=== PATIENT | female | born 1965 | race Caucasian/White ===

== ENCOUNTER 2017-03-01 07:40 | Inpatient (IN) | payer OTHER ==
[2017-03-01] VITALS (16 sets, daily range): BP systolic 107–153; BP diastolic 48–66; PULSE 104–121; RESP 15–26; TEMP 97.4–98.4; O2SAT 99–100
[~2017-03-01] VITALS: Ht 157.5 cm; Wt 68.1 kg
[~2017-03-01 07:40] MED LIST: DAPA5TAB PO; DICL75 PO; GLIP10TA6 PO; ZANTTAB9 PO
[2017-03-01] MEDS ORDERED: RESP: ALBUTEROL 2.5 MG/3 ML NEB (SCH) INH ONE (08:00)
[2017-03-01] MEDS ORDERED: SODIUM CHLORIDE 0.9% FLUSH 10 ML FLUSH IVF PRN ×2 (08:00→09:15)
[2017-03-01] MEDS ORDERED: DOCU50CA5 PO (08:20)
[2017-03-01] MEDS ORDERED: GLIP10TA6 PO (08:20)
[2017-03-01] MEDS ORDERED: LISI10TA3 PO (08:20)
[2017-03-01] MEDS ORDERED: LOVA20TA PO (08:20)
[2017-03-01] MEDS ORDERED: D200CAP PO (08:20)
[2017-03-01] MEDS ORDERED: DAPA1TAB3 PO (08:20)
[2017-03-01] MEDS ORDERED: METF500T PO (08:20)
[2017-03-01 08:29] LABS: AUTOMATED NEUTROPHIL # 4.8 TH/MM3 (1.8-7.7); BASOPHIL # 0.1 TH/MM3 (0-0.2); BASOPHIL % 1.2 % (0.0-2.0); EOSINOPHIL # 0.1 TH/MM3 (0-0.4); EOSINOPHIL % 1.2 % (0.0-4.0); HEMATOCRIT 48.5 % (35.0-46.0); HEMOGLOBIN 16.1 GM/DL (11.6-15.3); LYMPH % 31.9 % (9.0-44.0); LYMPHOCYTE # 2.7 TH/MM3 (1.0-4.8); MEAN CELL VOLUME 94.8 FL (80.0-100.0); MEAN CORPUSCULAR HEMOGLOBIN 31.5 PG (27.0-34.0); MEAN CORPUSCULAR HGB CONC 33.3 % (32.0-36.0); MEAN PLATELET VOLUME 6.9 FL (7.0-11.0); MONOCYTE # 0.8 TH/MM3 (0-0.9); NEUT % 56.7 % (16.0-70.0); PLATELET COUNT 287 TH/MM3 (150-450); RED BLOOD COUNT 5.12 MIL/MM3 (4.00-5.30); RED CELL DISTRIBUTION WIDTH 14.9 % (11.6-17.2); WHITE BLOOD COUNT 8.4 TH/MM3 (4.0-11.0)
--- NOTE | 2017-03-01 08:31 | PD ---
HPI Chief Complaint: Respiratory Symptoms Time Seen by Provider: 07:57 Travel History International Travel<30 days: No Contact w/Intl Traveler<30days: No Traveled to known affect area: No History of Present Illness HPI 51-year-old female complains of shortness of breath. She has been short of breath for the past 3 days approximately and the symptoms worsened today. There is a cough nonproductive. No fever. No chest pain. No history of COPD asthma or CHF. The patient reports dyspnea on exertion and orthopnea. No fever. Multiple personal stressors are reported. No vomiting. Timing constant. Severity moderate least. No history of smoking. PFSH Past Medical History Anemia: Yes Blood Disorders: No Cancer: No Cardiovascular Problems: Yes (HTN ) High Cholesterol: Yes Diabetes: Yes Patient Takes Glucophage: Yes Endocrine: Yes Genitourinary: No Hypertension: Yes Immune Disorder: No Musculoskeletal: No Neurologic: No Psychiatric: No Reproductive: Yes Respiratory: Yes (PNEMONIA) Integumentary: Yes (CYST LABIA) Thyroid Disease: Yes Triglycerides - High: Yes Tetanus Vaccination: > 5 Years ?: Not Menopausal: Yes Past Surgical History Abdominal Surgery: No AICD: No Arteriovenous Shunt: No Cardiac Surgery: No Section: Yes Ear Surgery: No Endocrine Surgery: No Eye Surgery: Yes Gynecologic Surgery: Yes (SURGERY FOR ENDOMETREOSIS) Insulin Pump: No Joint Replacement: No Oral Surgery: No Pacemaker: No Thoracic Surgery: No Other Surgery: Yes (CYST REMOVED B WRISTS AND SKIN GRAFT RT CALF) Social History Alcohol Use: No Tobacco Use: No Substance Use: No Allergies-Medications (Allergen,Severity, Reaction): Coded Allergies: codeine (Unverified Allergy, Mild, VOMITING, 03/01/17) Reported Meds & Prescriptions Reported Meds & Active Scripts Active Reported Stool Softener (Docusate Sodium) 50 Mg Capsule PO DIRECTED D3 Super Strength (Cholecalciferol) 2,000 Unit Cap 2,000 Units PO DAILY Lisinopril 10 Mg Tab 10 Mg PO DAILY Lovastatin 20 Mg Tab 20 Mg PO DAILY Farxiga (Dapagliflozin) 10 Mg Tab 10 Mg PO DAILY Glipizide 10 Mg Tab 10 Mg PO BIDAC Take 30 minutes before a meal Metformin (Metformin HCl) 500 Mg Tab 500 Mg PO BID With a meal Review of Systems Except as stated in HPI: all other systems reviewed are Neg General / Constitutional: No: Fever Cardiovascular: No: Chest Pain or Discomfort Respiratory: Positive: Cough, Shortness of Breath Gastrointestinal: Positive: Nausea Physical Exam Narrative GENERAL: 51 yo F, WNWD, mild distress 2/2 dyspnea/anxiety SKIN: Warm and dry. HEAD: Atraumatic. Normocephalic. EYES: Pupils equal and round. No scleral icterus. No injection or drainage. ENT: No nasal bleeding or discharge. Mucous membranes pink and moist. NECK: Trachea midline. No JVD. CARDIOVASCULAR: Regular rate and rhythm. RESPIRATORY: No accessory muscle use. Clear to auscultation. Breath sounds equal bilaterally. GASTROINTESTINAL: Abdomen soft, non-tender, nondistended. Hepatic and splenic margins not palpable. MUSCULOSKELETAL: Extremities without clubbing, cyanosis, or edema. No obvious deformities. NEUROLOGICAL: Awake and alert. No obvious cranial nerve deficits. Motor grossly within normal limits. Five out of 5 muscle strength in the arms and legs. Normal speech. PSYCHIATRIC: Appropriate mood and affect; insight and judgment normal. Data Data Last Documented VS Vital Signs Date Time Temp Pulse Resp B/P (MAP) Pulse Ox O2 Delivery O2 Flow Rate FiO2 03/01/17 09:44 119 26 110/48 (68) 100 Nasal Cannula 2.00 03/01/17 07:47 97.8 Orders Orders Complete Blood Count With Diff (03/01/17 07:57) Basic Metabolic Panel (Bmp) (03/01/17 07:57) B-Type Natriuretic Peptide (03/01/17 07:57) Ckmb (Isoenzyme) Profile (03/01/17 07:57) Troponin I (03/01/17 07:57) Iv Access Insert/Monitor (03/01/17 07:57) Electrocardiogram (03/01/17 07:57) Ecg Monitoring (03/01/17 07:57) Oximetry (03/01/17 07:57) Oxygen Administration (03/01/17 07:57) Chest, Single Ap (03/01/17 07:57) Ct Pulmonary Angiogram (03/01/17 07:57) Sodium Chloride 0.9% Flush (Ns Flush) (03/01/17 08:00) Albuterol Neb (Albuterol Neb) (03/01/17 08:00) Lorazepam Inj (Ativan Inj) (03/01/17 08:45) Iohexol 350 Inj (Omnipaque 350 Inj) (03/01/17 08:48) Beta Hydroxybutyrate (Acetone) (03/01/17 09:07) Urinalysis - C+S If Indicated (03/01/17 09:07) Sodium Chlor 0.9% 1000 Ml Inj (Ns 1000 M (03/01/17 09:07) Sodium Chlor 0.9% 1000 Ml Inj (Ns 1000 M (03/01/17 09:37) Sodium Chloride 0.9% Flush (Ns Flush) (03/01/17 09:15) Lorazepam Inj (Ativan Inj) (03/01/17 09:15) Arterial Blood Gas (Abg) (03/01/17 ) Basic Metabolic Panel (Bmp) (03/01/17 11:22) Hepatic Functional Panel (03/01/17 09:40) Lipase (03/01/17 09:40) Troponin I (03/01/17 09:40) Creatine Kinase (Cpk) (03/01/17 09:40) Osmolality,Serum (03/01/17 09:40) Alcohol (Ethanol) (03/01/17 09:40) Drug Screen, Random Urine (03/01/17 09:40) Tylenol (Acetaminophen) (03/01/17 09:40) Salicylates (Aspirin) (03/01/17 09:40) Water Sterile For I... W/Sodium Bicarbon (03/01/17 10:00) Sodium Bicarbonate 8.4% Inj (Sodium Bica (03/01/17 10:00) Sodium Bicarbonate 8.4% Inj (Sodium Bica (03/01/17 10:00) Insulin Human Regular Inj (Novolin R Inj (03/01/17 10:00) Lactic Acid (03/01/17 09:55) Admit Order (Ed Use Only) (03/01/17 ) Vocational Nurse Lvn / Telemetry BENJAMIN.Q8H (03/01/17 09:56) Vital Signs (Adult) Q4H (03/01/17 09:56) Diet Npo (03/01/17 Breakfast) Diet Heart Healthy (03/01/17 Breakfast) Notify Dr: Other (03/01/17 09:56) Labs Laboratory Tests Test 03/01/17 08:01 03/01/17 09:22 03/01/17 09:30 03/01/17 09:56 White Blood Count 8.4 TH/MM3 Red Blood Count 5.12 MIL/MM3 Hemoglobin 16.1 GM/DL Hematocrit 48.5 % Mean Corpuscular Volume 94.8 FL Mean Corpuscular Hemoglobin 31.5 PG Mean Corpuscular Hemoglobin Concent 33.3 % Red Cell Distribution Width 14.9 % Platelet Count 287 TH/MM3 Mean Platelet Volume 6.9 FL Neutrophils (%) (Auto) 56.7 % Lymphocytes (%) (Auto) 31.9 % Monocytes (%) (Auto) 9.0 % Eosinophils (%) (Auto) 1.2 % Basophils (%) (Auto) 1.2 % Neutrophils # (Auto) 4.8 TH/MM3 Lymphocytes # (Auto) 2.7 TH/MM3 Monocytes # (Auto) 0.8 TH/MM3 Eosinophils # (Auto) 0.1 TH/MM3 Basophils # (Auto) 0.1 TH/MM3 CBC Comment AUTO DIFF Differential Comment AUTO DIFF CONFIRMED Blood Urea Nitrogen 21 MG/DL 20 MG/DL Creatinine 0.97 MG/DL 0.90 MG/DL Random Glucose 279 MG/DL 316 MG/DL Calcium Level 8.9 MG/DL 8.3 MG/DL Sodium Level 137 MEQ/L 134 MEQ/L Potassium Level 4.8 MEQ/L 5.3 MEQ/L Chloride Level 104 MEQ/L 103 MEQ/L Carbon Dioxide Level 6.5 MEQ/L LESS THAN 5.0 MEQ/L Anion Gap 27 MEQ/L 26 MEQ/L Estimat Glomerular Filtration Rate 60 ML/MIN 65 ML/MIN Total Creatine Kinase 100 U/L 101 U/L Troponin I LESS THAN 0.02 NG/ML LESS THAN 0.02 NG/ML B-Type Natriuretic Peptide 28 PG/ML B-Hydroxybutyrate 14.77 MMOL/L Urine Color LIGHT-YELLOW Urine Turbidity CLEAR Urine pH 5.0 Urine Specific [place] 1.032 Urine Protein 30 mg/dL Urine Glucose (UA) 1000 mg/dL Urine Ketones 150 mg/dL Urine Occult Blood NEG Urine Nitrite NEG Urine Bilirubin NEG Urine Urobilinogen LESS THAN 2.0 MG/DL Urine Leukocyte Esterase NEG Urine WBC LESS THAN 1 /hpf Urine Squamous Epithelial Cells <1 /hpf Urine Hyaline Casts 3 /lpf Urine Mucus FEW /lpf Microscopic Urinalysis Comment CULT NOT INDICATED Urine Opiates Screen NEG Urine Barbiturates Screen NEG Urine Amphetamines Screen NEG Urine Benzodiazepines Screen NEG Urine Cocaine Screen NEG Urine Cannabinoids Screen NEG Blood Gas Puncture Site RT RADIAL Blood Gas Patient Temperature 98.6 Blood Gas HCO3 2 mmol/L Blood Gas Base Excess -26.9 mmol/L Blood Gas Oxygen Saturation 95 % Arterial Blood pH 7.07 Arterial Blood Partial Pressure CO2 8 mmHg Arterial Blood Partial Pressure O2 144 mmHG Arterial Blood Oxygen Content 19.6 Vol % Arterial Blood Carboxyhemoglobin 1.1 % Arterial Blood Methemoglobin 1.4 % Blood Gas Hemoglobin 14.5 G/DL Blood Gas Inspired Oxygen 21 % Serum Osmolality 327 MOSM/KG Total Bilirubin 0.4 MG/DL Direct Bilirubin LESS THAN 0.1 MG/DL Indirect Bilirubin 0.3 MG/DL Aspartate Amino Transf (AST/SGOT) 15 U/L Alanine Aminotransferase (ALT/SGPT) 15 U/L Alkaline Phosphatase 94 U/L Total Protein 6.9 GM/DL Albumin 3.4 GM/DL Lipase 392 U/L Salicylates Level 5.2 MG/DL Acetaminophen Level LESS THAN 2.0 MCG/ML Ethyl Alcohol Level 4 MG/DL MDM Medical Decision Making Medical Screen Exam Complete: Yes Emergency Medical Condition: Yes Medical Record Reviewed: Yes Differential Diagnosis PE, pneumonia, CHF, COPD, anxiety, DKA Narrative Course CBC & BMP Diagram 03/01/17 08:01 Calcium Level 8.9 Anion gap 27 AB.067/8.1/2.2 BE -27 ABGO2 144 on 2L NC 2L NS ordered EKG: Sinus, rate 110, OK interval is 112 Last 24 hours Impressions Chest X-Ray 03/01/17 0757 Signed Impressions: Service Date/Time: Wednesday, March 01, 2017 08:18 - CONCLUSION: Normal examination. Alan Stover Jr., MD CT Angiography 03/01/17 0757 Signed Impressions: Service Date/Time: Wednesday, March 01, 2017 08:43 - CONCLUSION: 1. No acute intrathoracic process. In particular, no pulmonary embolus. 2. 1.6 cm left thyroid nodule. Alan Stover Jr., MD The beta hydroxybutyrate is 14.77 concerning for DKA. The patient will receive insulin 5 units as well as 2 A bicarbonate of bicarbonate drip. Case discussed with Dr. Hobbs. Upon reassessment of the patient at approximately 11:30 AM the family member reports patient has been vomiting frequently for the past week or so also suggesting a DKA type presentation. Patient will be admitted to the [facility]. Critical Care Narrative Aggregate critical care time was 40 minutes. Time to perform other separately billable procedures was not included in the critical care time. My time did not include minutes spent treating any other patients simultaneously or on activities that did not directly contribute to the patient's treatment. The services I provided to this patient were to treat and/or prevent clinically significant deterioration that could result in: cardiopulmonary arrest arrhythmia I provided critical care services requiring my management, as noted below: Chart data review, documentation time, medication orders and management, vital sign assessments/reviewing monitor data, ordering and reviewing lab tests, ordering and interpreting/reviewing x-rays and diagnostic studies, care of the patient and discussion of the patient with the admitting physicians. Diagnosis Primary Impression: DKA, type 2 Qualified Codes: E11.10 - Type 2 diabetes mellitus with ketoacidosis without coma Admitting Information Admitting Physician Requests: Admit Rohith Wallace MD Mar 01, 2017 08:31
[2017-03-01] MEDS: LORazepam 2 MG/ML VIAL IV PUSH ONE ×2 (08:45→09:08)
[2017-03-01 08:46] LABS: BICARBONATE 6.5 MEQ/L (21.0-32.0); BLOOD UREA NITROGEN 21 MG/DL (7-18); CALCIUM 8.9 MG/DL (8.5-10.1); CHLORIDE 104 MEQ/L (98-107); CREATININE 0.97 MG/DL (0.50-1.00); GLOMERULAR FILTRATION RATE 60 ML/MIN (>89); GLUCOSE,RANDOM 279 MG/DL (74-106); SODIUM (NA) 137 MEQ/L (136-145)
[2017-03-01] MEDS ORDERED: IOHEXOL 350 MG/ML 10 ML VIAL (for RAD DIAG) IVCONTRAST ONE (08:48)
[2017-03-01 08:49] LABS: TROPONIN I LESS THAN 0.02 NG/ML (0.02-0.05)
--- NOTE | 2017-03-01 08:55 | RADRPT ---
EXAM DATE/TIME: 03/01/2017 08:18 [facility] COMPARISON: No previous studies available for comparison. INDICATIONS : Shortness of breath x 1 day. MEDICAL HISTORY : None. SURGICAL HISTORY : None. ENCOUNTER: Initial ACUITY: 1 day PAIN SCORE: 0/10 LOCATION: Bilateral chest FINDINGS: A single view of the chest demonstrates the lungs to be symmetrically aerated without evidence of mas s, infiltrate or effusion. The cardiomediastinal contours are unremarkable. Osseous structures are intact. CONCLUSION: Normal examination. Alan Stover Jr., MD on March 01, 2017 at 8:52 Board Certified Radiologist. This report was verified electronically.
--- NOTE | 2017-03-01 09:06 | RADRPT ---
EXAM DATE/TIME: 03/01/2017 08:43 [facility] COMPARISON: No previous studies available for comparison. INDICATIONS : Shortness of breath for two days. IV CONTRAST: 69 cc Omnipaque 350 (iohexol) IV RADIATION DOSE: 23.17 CTDIvol (mGy) MEDICAL HISTORY : Hypertension. Diabetes mellitus type 2. SURGICAL HISTORY : None. ENCOUNTER: Initial ACUITY: 1 day PAIN SCALE: 4/10 LOCATION: chest TECHNIQUE: Volumetric scanning of the chest was performed using a pulmonary embolism protocol MIP images were re constructed. Using automated exposure control and adjustment of the mA and/or kV according to patien t size, radiation dose was kept as low as reasonably achievable to obtain optimal diagnostic quality images. DICOM format image data is available electronically for review and comparison. Follow-up recommendations for detected pulmonary nodules are based at a minimum on nodule size and pa tient risk factors according to Fleischner Society Guidelines. FINDINGS: PULMONARY ARTERIES: No filling defects are seen in the pulmonary arteries through the segmental level. LUNGS: There is no consolidation or pneumothorax . No concerning pulmonary nodule is visualized. PLEURAE: There is no pleural thickening or pleural effusion. MEDIASTINUM: There is good visualization of the great vessels of the middle mediastinum. No evidence of mediastin al or hilar adenopathy/mass. MUSCULOSKELETAL: Within normal limits for patient age. MISCELLANEOUS: The visualized upper abdominal organs demonstrate no acute abnormality. There is a 1.6 cm low-density nodule involving the left lobe of the thyroid. CONCLUSION: 1. No acute intrathoracic process. In particular, no pulmonary embolus. 2. 1.6 cm left thyroid nodule. Alan Stover Jr., MD on March 01, 2017 at 8:59 Board Certified Radiologist. This report was verified electronically.
[2017-03-01] MEDS ORDERED: SODIUM CHLOR 0.9% 1000 ML INJ 1,000 ML IV ONE ×2 (09:07→09:37)
[2017-03-01] MEDS ORDERED: LORazepam 2 MG/ML VIAL IV PUSH ONE (09:15)
[2017-03-01 09:38] LABS: BILIRUBIN, URINE NEG (NEG); BLOOD, URINE NEG (NEG); GLUCOSE,URINE 1000 mg/dL (NEG); HYALINE CAST, URINE 3 /lpf (RARE); KETONE, URINE 150 mg/dL (NEG); MUCUS URINE FEW /lpf (OCC); NITRITE,URINE NEG (NEG); SQUAMOUS EPITHELIAL CELL URINE <1 /hpf (0-5); URINE COLOR LIGHT-YELLOW (YELLW/STRAW); URINE LEUKOCYTE ESTERASE NEG (NEG)
[2017-03-01] MEDS ORDERED: SODIUM BICARBONATE 8.4% INJ 50 MEQ/50 ML SYR IV PUSH ONE ×2 (10:00)
[2017-03-01] MEDS ORDERED: INSULIN HUMAN REGULAR 1,000 UNITS/10 ML VIAL IV PUSH ONE ×2 (10:00→12:00)
[2017-03-01] MEDS ORDERED: LACTULOSE SYRUP 20 GM/30 ML CUP PO PRN (10:15)
[2017-03-01] MEDS ORDERED: MAGNESIUM HYDROXIDE SUSP 30 ML CUP PO PRN (10:15)
[2017-03-01] MEDS ORDERED: SENNOSIDES 8.6 MG TAB PO PRN (10:15)
[2017-03-01] MEDS ORDERED: MISCELLANEOUS NURSING INFORMATION XX SCH ×2 (10:15→11:00)
[2017-03-01] MEDS: DOCUSATE SODIUM 50 MG/SENNA 8.6 MG TAB PO SCH ×2 (10:15→20:56)
[2017-03-01] MEDS ORDERED: RESP: IPRATROPIUM 0.5 MG/2.5 ML NEB INH PRN (10:15)
[2017-03-01] MEDS ORDERED: CHLORHEXIDINE GLUCONATE 2 % 1 PACK (2 CLOTHS) TOP PRN ×2 (10:15→11:00)
[2017-03-01] MEDS ORDERED: BISACODYL 10 MG SUPP RECTAL PRN (10:15)
[2017-03-01] MEDS: SODIUM BICARBONATE 8.4% INJ 150 MEQ in WATER STERILE FOR INJ 850 ML IV SCH ×2 (10:19→17:18)
[2017-03-01] MEDS: RESP: ALBUTEROL 2.5 MG/IPRATROPIUM 0.5 MG NEB (SCH) INH ×3 (10:26→20:47)
[2017-03-01 10:27] LABS: BICARBONATE LESS THAN 5.0 MEQ/L (21.0-32.0); BLOOD UREA NITROGEN 20 MG/DL (7-18); CALCIUM 8.3 MG/DL (8.5-10.1); CHLORIDE 103 MEQ/L (98-107); GLOMERULAR FILTRATION RATE 65 ML/MIN (>89); GLUCOSE,RANDOM 316 MG/DL (74-106); SODIUM (NA) 134 MEQ/L (136-145)
[2017-03-01 10:32] LABS: ACETAMINOPHEN LESS THAN 2.0 MCG/ML (10.0-30.0); ALBUMIN 3.4 GM/DL (3.4-5.0); ALKALINE PHOSPHATASE 94 U/L (45-117); ALT (GPT) 15 U/L (10-53); AST (GOT) 15 U/L (15-37); DIRECT BILIRUBIN ADULT LESS THAN 0.1 MG/DL (0.0-0.2); INDIRECT BILIRUBIN 0.3 MG/DL (0.0-0.8); LIPASE 392 U/L (73-393); TOTAL BILIRUBIN ADULT 0.4 MG/DL (0.2-1.0); TOTAL PROTEIN 6.9 GM/DL (6.4-8.2); TROPONIN I LESS THAN 0.02 NG/ML (0.02-0.05)
[2017-03-01] MEDS ORDERED: SODIUM BICARBONATE 8.4% SOLN 50 MEQ/50 ML VIAL IV PUSH PRN ×2 (11:00)
[2017-03-01] MEDS: DEXT 5%-NACL 0.9% 1000 ML INJ 1,000 ML IV SCH ×4 (11:00→19:34)
[2017-03-01] MEDS ORDERED: POTASSIUM CHLOR 20 MEQ PREMIX 100 ML IV PRN ×4 (11:00)
[2017-03-01] MEDS ORDERED: POTASSIUM CHLOR 40 MEQ PREMIX 100 ML IV PRN ×2 (11:00)
[2017-03-01] MEDS: FAMOTIDINE 20 MG/2 ML VIAL IV PUSH SCH ×2 (11:24→20:55)
[2017-03-01] MEDS: SODIUM CHLOR 0.9% 1000 ML INJ 1,000 ML IV SCH ×4 (11:24→23:00)
[2017-03-01] MEDS: HEPARIN SODIUM - SQ 10,000 UNITS/ML VIAL SQ SCH ×2 (11:49→20:55)
[2017-03-01] MEDS: INSULIN REGULAR (IV INFUSION) 100 UNITS in SODIUM CHLORIDE 0.9% INJ 99 ML IV PRN (14:15)
--- NOTE | 2017-03-01 15:09 | MH ---
cc: NITO NEVILLE M.D. DATE OF ADMISSION: 03/01/2017 DATE OF 1965 HISTORY OF PRESENT ILLNESS The patient is a 51-year-old female with past medical history of hypertension, diabetes mellitus, hyperlipidemia who presented to [facility] ED with complaints of shortness of breath associated with feeling nauseous. She denies any associated symptoms of chest pain, orthopnea, PND or edema of lower extremities. In addition she denies any abdominal pain. On arrival to the ED she was tachycardiac and tachypneic. Her laboratory data showed DKA. The patient was found to have beta-hydroxybutyrate of 14.7 and her ABG showed severe metabolic acidosis with a pH of 7.07, CO2 8, pAO2 144, bicarb 2 and saturation 95% on room air oxygen. Her anion gap was 26 and blood sugar of 316 on the repeat BMP. In the ED she was given 2 liters of crystalloids, 2 amps of sodium bicarb and 40 units of IV insulin. She had a CT angiogram of the chest in the ED which showed no acute intrathoracic process, a 1.6 cm left thyroid nodule noted. PAST MEDICAL HISTORY 1. Hypertension. 2. Diabetes mellitus. 3. Hyperlipidemia. PAST SURGICAL HISTORY 1. Previous eye surgery. 2. Previous . 3. Right lower extremity surgery. SOCIAL HISTORY Nonsmoker, nondrinker. ALLERGIES CODEINE. REPORTED MEDICATIONS 1. Metformin. 2. Glipizide. 3. Lovastatin. 4. Lisinopril. FAMILY HISTORY Not contributing to current present illness. PHYSICAL EXAMINATION GENERAL: A 51-year-old female, tachypneic, critically ill. VITAL SIGNS: Temperature 97.8, pulse of 122, blood pressure 123/78, saturation 100% on 2 liters oxygen. HEENT: Atraumatic, normocephalic. Pupil equal, round, reactive to light and accommodation. Extraocular muscles intact. Conjunctivae pink. Nonicteric sclerae. Oral mucosa with dry mucous membranes noted. NECK: Supple. No JVD, adenopathy, thyromegaly. Trachea in the midline. CARDIOVASCULAR EXAM: Tachycardiac. Normal S1-S2. No murmurs, rubs or gallops noted. PULMONARY EXAM: Bilateral equal air entry. No rales or wheezing. ABDOMEN: Soft, nontender. No distension. Positive bowel sounds. EXTREMITIES: No cyanosis, clubbing or edema. NEURO: Awake, alert and tachypneic. No focal sensory deficit. LABORATORY DATA WBC 8.4, hemoglobin 16.1, hematocrit 48, platelet count of 287. Repeat BMP shows sodium 134, potassium 5.3. chloride 103, CO2 less than 5, BUN 28, creatinine 0.90, glucose 316, anion gap 26. LFTs within normal. Troponin less than 0.02. Lipase 392. ABGs showed a pH of 7.07, CO2 8, pAO2 144, bicarb 2, O2 sats 95%. Urine drug screen negative. Beta-hydroxybutyrate 14.7. RADIOGRAPHIC STUDIES Chest x-ray in the ED within normal. CT OF THE CHEST Negative for PE. No acute intrathoracic process noted. A 1.6 cm nodule noted. IMPRESSION 1. Respiratory insufficiency. 2. Diabetic ketoacidosis. 3. Anion gap, metabolic acidosis. 4. Hypertension. 5. Hyperlipidemia. 6. A 1.6 cm left thyroid nodule. 7. Dehydration. IMPRESSION AND PLAN 1. Monitor neuro status closely and avoid any sedatives. She received Ativan 1 mg IV in the ED. 2. Continue oxygen to maintain sats above 92%. 3. Bronchodilators in the form of DuoNeb q. 6 +2 p.r.n. for shortness of breath. 4. Monitor heart rate and blood pressure closely and maintain MAP greater than 65 mmHg. Follow up on lactic acid level. Troponin less than 0.02 with a total CK 101. We will hold lisinopril for now given mild hyperkalemia on repeat BMP. 5. Monitor renal function I's and O's and electrolyte replacement per protocol. We will place on insulin drip per DKA protocol. Monitor BMP, mag phos q. 6-hours, beta-hydroxybutyrate q. 12-hours. 6. IV fluids per DKA protocol. 7. Keep n.p.o. for now and we will place on Protonix 20 mg IV q. 12 for GI prophylaxis. 8. Monitor CBC and for signs of infections which include fever and WBC. Panculture if spikes a fever. CT angiogram of the chest in the ED showed no acute intrathoracic process. 9. GI prophylaxis with Pepcid and DVT prophylaxis with SCDs and heparin subcu. Further recommendations will be based on her hospital course. MD ARMANI Leonardo /10:44 AM /2:26 PM
[2017-03-01 19:17] LABS: BICARBONATE 11.7 MEQ/L (21.0-32.0); CALCIUM 7.3 MG/DL (8.5-10.1); CREATININE 0.62 MG/DL (0.50-1.00); PHOSPHORUS 1.7 MG/DL (2.5-4.9)
[2017-03-01 19:35] LABS: CALCIUM-PROTEIN CORRECTED 8.2 MG/DL (8.5-10.1); TOTAL PROTEIN 5.4 GM/DL (6.4-8.2)
--- NOTE | 2017-03-01 22:35 | EKG ---
Date Performed: 03/01/2017 Time Performed: 08:13:30 PTAGE: 51 years EKG: SINUS TACHYCARDIA WITH SHORT GA INTERVAL NONSPECIFIC ST & T-WAVE ABNORMALITY ABNORMAL RHYTH M ECG NO PREVIOUS TRACING DOCTOR: Adrien Wallace Interpretating Date/Time 03/01/2017 22:33:11
[2017-03-02] VITALS (20 sets, daily range): BP systolic 96–142; BP diastolic 47–92; PULSE 100–115; RESP 16–38; TEMP 97.5–98.7; O2SAT 98–100
[2017-03-02] MEDS: DEXT 5%-NACL 0.9% 1000 ML INJ 1,000 ML IV SCH ×2 (02:00→03:56)
[2017-03-02] MEDS: SODIUM CHLOR 0.9% 1000 ML INJ 1,000 ML IV SCH ×4 (03:00→15:00)
[2017-03-02] MEDS: SODIUM BICARBONATE 8.4% INJ 150 MEQ in WATER STERILE FOR INJ 850 ML IV SCH ×2 (03:56→17:00)
[2017-03-02] MEDS: CHLORHEXIDINE GLUCONATE 2 % 1 PACK (2 CLOTHS) TOP SCH (03:56)
[2017-03-02] MEDS ORDERED: CHLORHEXIDINE GLUCONATE 2 % 1 PACK (2 CLOTHS) TOP SCH (04:00)
[2017-03-02] MEDS: RESP: ALBUTEROL 2.5 MG/IPRATROPIUM 0.5 MG NEB (SCH) INH ×4 (04:00→20:30)
[2017-03-02 05:19] LABS: BICARBONATE 18.2 MEQ/L (21.0-32.0); CALCIUM 7.1 MG/DL (8.5-10.1); CREATININE 0.67 MG/DL (0.50-1.00); MAGNESIUM 2.1 MG/DL (1.5-2.5); PHOSPHORUS 0.9 MG/DL (2.5-4.9)
[2017-03-02 05:38] LABS: TOTAL PROTEIN 5.4 GM/DL (6.4-8.2)
[2017-03-02] MEDS: FAMOTIDINE 20 MG/2 ML VIAL IV PUSH SCH ×2 (07:44→21:19)
[2017-03-02] MEDS: DOCUSATE SODIUM 50 MG/SENNA 8.6 MG TAB PO SCH ×3 (07:44→21:18)
--- NOTE | 2017-03-02 07:54 | HHI.CCPN ---
Subjective Remarks/Hospital Course Patient is a 51-year-old female with past medical history of hypertension, diabetes mellitus, hyperlipidemia who presented to [facility] ED with complaints of shortness of breath associated with feeling nauseous. She denies any associated symptoms of chest pain, orthopnea, PND or edema of lower extremities. In addition she denies any abdominal pain. On arrival to the ED she was tachycardiac and tachypneic. Her laboratory data showed DKA. The patient was found to have beta-hydroxybutyrate of 14.7 and her ABG showed severe metabolic acidosis with a pH of 7.07, CO2 8, pAO2 144, bicarb 2 and saturation 95% on room air oxygen. Her anion gap was 26 and blood sugar of 316 on the repeat BMP. In the ED she was given 2 liters of crystalloids, 2 amps of sodium bicarb and 4 units of IV insulin. 03/02 Patient remains on insulin drip 3u/hr, AG is 15 this morning from 22. Objective Vital Signs Date Time Temp Pulse Resp B/P (MAP) Pulse Ox O2 Delivery O2 Flow Rate FiO2 03/02/17 06:00 111 03/02/17 04:00 98.3 17 135/63 (87) 100 03/01/17 20:47 Nasal Cannula 2.00 Intake and Output 03/02/17 03/02/17 03/03/17 08:00 16:00 00:00 Intake Total 2000 ml Output Total 1550 ml Balance 450 ml Result Diagram: 03/01/17 0801 03/02/17 0424 Other Results Laboratory Tests Test 03/01/17 08:01 03/01/17 09:22 03/01/17 09:30 03/01/17 09:56 White Blood Count 8.4 TH/MM3 Red Blood Count 5.12 MIL/MM3 Hemoglobin 16.1 GM/DL Hematocrit 48.5 % Mean Corpuscular Volume 94.8 FL Mean Corpuscular Hemoglobin 31.5 PG Mean Corpuscular Hemoglobin Concent 33.3 % Red Cell Distribution Width 14.9 % Platelet Count 287 TH/MM3 Mean Platelet Volume 6.9 FL Neutrophils (%) (Auto) 56.7 % Lymphocytes (%) (Auto) 31.9 % Monocytes (%) (Auto) 9.0 % Eosinophils (%) (Auto) 1.2 % Basophils (%) (Auto) 1.2 % Neutrophils # (Auto) 4.8 TH/MM3 Lymphocytes # (Auto) 2.7 TH/MM3 Monocytes # (Auto) 0.8 TH/MM3 Eosinophils # (Auto) 0.1 TH/MM3 Basophils # (Auto) 0.1 TH/MM3 CBC Comment AUTO DIFF Differential Comment AUTO DIFF CONFIRMED Blood Urea Nitrogen 21 MG/DL 20 MG/DL Creatinine 0.97 MG/DL 0.90 MG/DL Random Glucose 279 MG/DL 316 MG/DL Calcium Level 8.9 MG/DL 8.3 MG/DL Sodium Level 137 MEQ/L 134 MEQ/L Potassium Level 4.8 MEQ/L 5.3 MEQ/L Chloride Level 104 MEQ/L 103 MEQ/L Carbon Dioxide Level 6.5 MEQ/L LESS THAN 5.0 MEQ/L Anion Gap 27 MEQ/L 26 MEQ/L Estimat Glomerular Filtration Rate 60 ML/MIN 65 ML/MIN Total Creatine Kinase 100 U/L 101 U/L Troponin I LESS THAN 0.02 NG/ML LESS THAN 0.02 NG/ML B-Type Natriuretic Peptide 28 PG/ML B-Hydroxybutyrate 14.77 MMOL/L Urine Color LIGHT-YELLOW Urine Turbidity CLEAR Urine pH 5.0 Urine Specific [place] 1.032 Urine Protein 30 mg/dL Urine Glucose (UA) 1000 mg/dL Urine Ketones 150 mg/dL Urine Occult Blood NEG Urine Nitrite NEG Urine Bilirubin NEG Urine Urobilinogen LESS THAN 2.0 MG/DL Urine Leukocyte Esterase NEG Urine WBC LESS THAN 1 /hpf Urine Squamous Epithelial Cells <1 /hpf Urine Hyaline Casts 3 /lpf Urine Mucus FEW /lpf Microscopic Urinalysis Comment CULT NOT INDICATED Urine Opiates Screen NEG Urine Barbiturates Screen NEG Urine Amphetamines Screen NEG Urine Benzodiazepines Screen NEG Urine Cocaine Screen NEG Urine Cannabinoids Screen NEG Blood Gas Puncture Site RT RADIAL Blood Gas Patient Temperature 98.6 Blood Gas HCO3 2 mmol/L Blood Gas Base Excess -26.9 mmol/L Blood Gas Oxygen Saturation 95 % Arterial Blood pH 7.07 Arterial Blood Partial Pressure CO2 8 mmHg Arterial Blood Partial Pressure O2 144 mmHG Arterial Blood Oxygen Content 19.6 Vol % Arterial Blood Carboxyhemoglobin 1.1 % Arterial Blood Methemoglobin 1.4 % Blood Gas Hemoglobin 14.5 G/DL Blood Gas Inspired Oxygen 21 % Serum Osmolality 327 MOSM/KG Total Bilirubin 0.4 MG/DL Direct Bilirubin LESS THAN 0.1 MG/DL Indirect Bilirubin 0.3 MG/DL Aspartate Amino Transf (AST/SGOT) 15 U/L Alanine Aminotransferase (ALT/SGPT) 15 U/L Alkaline Phosphatase 94 U/L Total Protein 6.9 GM/DL Albumin 3.4 GM/DL Lipase 392 U/L Salicylates Level 5.2 MG/DL Acetaminophen Level LESS THAN 2.0 MCG/ML Ethyl Alcohol Level 4 MG/DL Test 03/01/17 10:17 03/01/17 13:55 03/01/17 14:30 03/01/17 18:23 Lactic Acid Level 1.2 mmol/L Nasal Screen MRSA (PCR) MRSA NOT DETECTED Blood Gas Puncture Site RT RADIAL Blood Gas Patient Temperature 98.6 Blood Gas HCO3 3 mmol/L Blood Gas Base Excess -24.4 mmol/L Blood Gas Oxygen Saturation 95 % Arterial Blood pH 7.16 Arterial Blood Partial Pressure CO2 10 mmHg Arterial Blood Partial Pressure O2 158 mmHg Arterial Blood Oxygen Content 17.9 Vol % Arterial Blood Carboxyhemoglobin 0.9 % Arterial Blood Methemoglobin 1.8 % Blood Gas Hemoglobin 13.1 G/DL Oxygen Delivery Device NASAL CANNULA Blood Gas Liter Flow 3 L/M Blood Urea Nitrogen 14 MG/DL Creatinine 0.62 MG/DL Random Glucose 139 MG/DL Total Protein 5.4 GM/DL Calcium Level 7.3 MG/DL Phosphorus Level 1.7 MG/DL Magnesium Level 2.0 MG/DL Sodium Level 144 MEQ/L Potassium Level 3.7 MEQ/L Chloride Level 110 MEQ/L Carbon Dioxide Level 11.7 MEQ/L Anion Gap 22 MEQ/L Estimat Glomerular Filtration Rate 101 ML/MIN Protein Corrected Calcium 8.2 MG/DL Troponin I 0.08 NG/ML B-Hydroxybutyrate 11.27 MMOL/L Test 03/02/17 04:24 Blood Urea Nitrogen 8 MG/DL Creatinine 0.67 MG/DL Random Glucose 149 MG/DL Total Protein 5.4 GM/DL Calcium Level 7.1 MG/DL Phosphorus Level 0.9 MG/DL Magnesium Level 2.1 MG/DL Sodium Level 151 MEQ/L Potassium Level 4.0 MEQ/L Chloride Level 118 MEQ/L Carbon Dioxide Level 18.2 MEQ/L Anion Gap 15 MEQ/L Estimat Glomerular Filtration Rate 92 ML/MIN Protein Corrected Calcium 8.0 MG/DL Imaging Last Impressions Chest X-Ray 03/01/17 2700 Signed Impressions: Service Date/Time: Wednesday, March 01, 2017 08:18 - CONCLUSION: Normal examination. Alan Stover Jr., MD CT Angiography 03/01/17 0757 Signed Impressions: Service Date/Time: Wednesday, March 01, 2017 08:43 - CONCLUSION: 1. No acute intrathoracic process. In particular, no pulmonary embolus. 2. 1.6 cm left thyroid nodule. Alan Stover Jr., MD Objective Remarks GENERAL: Patient is 51 yo lying in bed in NAD SKIN: Warm and dry. HEAD: Normocephalic. EYES: No scleral icterus. No injection or drainage. NECK: Supple, trachea midline. No JVD or lymphadenopathy. CARDIOVASCULAR: Tachycardic without murmurs, gallops, or rubs. RESPIRATORY: Breath sounds equal bilaterally. No accessory muscle use. GASTROINTESTINAL: Abdomen soft, non-tender, nondistended. MUSCULOSKELETAL: No cyanosis, or edema. Neuro: Awake and alert. A/P Assessment and Plan 1. Respiratory insufficiency. 2. Diabetic ketoacidosis. 3. Anion gap, metabolic acidosis ( improving) 4. Hypertension. 5. Hyperlipidemia. 6. A 1.6 cm left thyroid nodule. 7. Hypophos Plan Neuro: Monitor neuro status and avoid any sedatives. Pulm: Continue oxygen to maintain sats above 92%. Bronchodilators CV: Monitor HR and BP maintain MAP>65 mmHg. Lactic acid 1.2 : Monitor renal function I's and O's and electrolyte replacement per protocol. Monitor BMP, mag phos q 6-hours, beta-hydroxybutyrate q. 12-hours. Change IVF D51/2NS@125ml/hr, d/c bicarb drip. Check ABG Endo: Continue with insulin drip per DKA protocol. Follow up on BMP once AG is closed will transition to SSI with Levemir. GI:Keep n.p.o. on Protonix 20 mg IV q. 12 for GI prophylaxis. ID: Monitor CBC and for signs of infections( fever and WBC). Panculture if spikes a fever. CT angiogram of the chest in the ED showed no acute intrathoracic process. Heme: Monitor CBC GI prophylaxis with Pepcid and DVT prophylaxis with SCDs and heparin subcu. Yancy Isaacs MD Mar 02, 2017 07:54
[2017-03-02] MEDS: DEXT 5%-NACL 0.45% 1000 ML INJ 1,000 ML IV SCH ×2 (08:14→16:07)
[2017-03-02] MEDS: SODIUM PHOSPHATE INJ 15 MMOL in SODIUM CHLORIDE 0.9% INJ 100 ML IV PRN (08:42)
[2017-03-02] MEDS: HEPARIN SODIUM - SQ 10,000 UNITS/ML VIAL SQ SCH ×2 (12:43→21:19)
[2017-03-02 12:46] LABS: BICARBONATE 13.2 MEQ/L (21.0-32.0); CALCIUM 7.5 MG/DL (8.5-10.1); CREATININE 0.58 MG/DL (0.50-1.00); MAGNESIUM 2.3 MG/DL (1.5-2.5)
[2017-03-02 14:34] LABS: ALBUMIN 2.7 GM/DL (3.4-5.0); ALKALINE PHOSPHATASE 73 U/L (45-117); ALT (GPT) 11 U/L (10-53); AST (GOT) 10 U/L (15-37); BICARBONATE 12.2 MEQ/L (21.0-32.0); BLOOD UREA NITROGEN 6 MG/DL (7-18); CALCIUM 7.5 MG/DL (8.5-10.1); CHLORIDE 119 MEQ/L (98-107); CREATININE 0.62 MG/DL (0.50-1.00); GLOMERULAR FILTRATION RATE 101 ML/MIN (>89); GLUCOSE,RANDOM 208 MG/DL (74-106); MAGNESIUM 2.3 MG/DL (1.5-2.5); PHOSPHORUS 2.6 MG/DL (2.5-4.9); SODIUM (NA) 151 MEQ/L (136-145); TOTAL BILIRUBIN ADULT 0.3 MG/DL (0.2-1.0); TOTAL PROTEIN 5.5 GM/DL (6.4-8.2)
[2017-03-02] MEDS ORDERED: SODIUM BICARBONATE 8.4% INJ 150 MEQ in WATER STERILE FOR INJ 850 ML IV SCH (16:00)
[2017-03-02] MEDS: POTASSIUM CHLORIDE INJ 20 MEQ in SODIUM CHLORIDE 0.9% INJ 100 ML IV PRN ×3 (16:07→21:56)
[2017-03-02 22:12] LABS: BICARBONATE 13.4 MEQ/L (21.0-32.0); CALCIUM 7.7 MG/DL (8.5-10.1); CREATININE 0.65 MG/DL (0.50-1.00); MAGNESIUM 2.4 MG/DL (1.5-2.5)
[2017-03-02 22:14] LABS: PHOSPHORUS 1.3 MG/DL (2.5-4.9)
[2017-03-03] VITALS (17 sets, daily range): BP systolic 101–138; BP diastolic 53–72; PULSE 95–111; RESP 12–23; TEMP 97.3–99.2; O2SAT 95–100
[2017-03-03] MEDS: POTASSIUM CHLORIDE INJ 20 MEQ in SODIUM CHLORIDE 0.9% INJ 100 ML IV PRN (00:05)
[2017-03-03] MEDS: DEXT 5%-NACL 0.45% 1000 ML INJ 1,000 ML IV SCH ×4 (01:11→22:16)
[2017-03-03 02:07] LABS: BICARBONATE 16.5 MEQ/L (21.0-32.0); CALCIUM 7.8 MG/DL (8.5-10.1); CREATININE 0.55 MG/DL (0.50-1.00); MAGNESIUM 2.7 MG/DL (1.5-2.5); PHOSPHORUS 0.9 MG/DL (2.5-4.9)
[2017-03-03] MEDS: SODIUM BICARBONATE 8.4% INJ 150 MEQ in WATER STERILE FOR INJ 850 ML IV SCH (03:04)
[2017-03-03] MEDS: INSULIN REGULAR (IV INFUSION) 100 UNITS in SODIUM CHLORIDE 0.9% INJ 99 ML IV PRN (03:10)
[2017-03-03] MEDS: RESP: ALBUTEROL 2.5 MG/IPRATROPIUM 0.5 MG NEB (SCH) INH ×4 (03:15→20:59)
[2017-03-03] MEDS: CHLORHEXIDINE GLUCONATE 2 % 1 PACK (2 CLOTHS) TOP SCH (04:00)
[2017-03-03 07:07] LABS: AUTOMATED NEUTROPHIL # 5.2 TH/MM3 (1.8-7.7); BASOPHIL % 0.3 % (0.0-2.0); HEMATOCRIT 35.9 % (35.0-46.0); HEMOGLOBIN 12.4 GM/DL (11.6-15.3); LYMPH % 13.2 % (9.0-44.0); LYMPHOCYTE # 0.9 TH/MM3 (1.0-4.8); MEAN CORPUSCULAR HEMOGLOBIN 31.8 PG (27.0-34.0); MEAN CORPUSCULAR HGB CONC 34.6 % (32.0-36.0); MEAN PLATELET VOLUME 6.7 FL (7.0-11.0); MONOCYTE # 0.8 TH/MM3 (0-0.9); NEUT % 74.5 % (16.0-70.0); PLATELET COUNT 171 TH/MM3 (150-450); RED CELL DISTRIBUTION WIDTH 15.4 % (11.6-17.2)
[2017-03-03 07:21] LABS: ALBUMIN 2.3 GM/DL (3.4-5.0); AST (GOT) 11 U/L (15-37); BLOOD UREA NITROGEN 5 MG/DL (7-18); CALCIUM 7.7 MG/DL (8.5-10.1); CHLORIDE 119 MEQ/L (98-107); CREATININE 0.67 MG/DL (0.50-1.00); GLOMERULAR FILTRATION RATE 92 ML/MIN (>89); GLUCOSE,RANDOM 165 MG/DL (74-106); MAGNESIUM 2.5 MG/DL (1.5-2.5); SODIUM (NA) 151 MEQ/L (136-145)
[2017-03-03 07:23] LABS: ALT (GPT) 12 U/L (10-53); PHOSPHORUS 0.9 MG/DL (2.5-4.9)
[2017-03-03 07:33] LABS: ALKALINE PHOSPHATASE 67 U/L (45-117); TOTAL BILIRUBIN ADULT 0.3 MG/DL (0.2-1.0); TOTAL PROTEIN 5.2 GM/DL (6.4-8.2)
[2017-03-03] MEDS: POTASSIUM CHLOR 20 MEQ PREMIX 100 ML IV PRN ×3 (08:21→22:48)
[2017-03-03] MEDS: DOCUSATE SODIUM 50 MG/SENNA 8.6 MG TAB PO SCH ×2 (08:22→20:21)
[2017-03-03] MEDS: FAMOTIDINE 20 MG/2 ML VIAL IV PUSH SCH ×2 (08:22→20:21)
[2017-03-03] MEDS: SODIUM PHOSPHATE INJ 15 MMOL in SODIUM CHLORIDE 0.9% INJ 100 ML IV PRN (08:34)
--- NOTE | 2017-03-03 09:56 | HHI.CCPN ---
Subjective Remarks/Hospital Course Patient is a 51-year-old female with past medical history of hypertension, diabetes mellitus, hyperlipidemia who presented to [facility] ED with complaints of shortness of breath associated with feeling nauseous. She denies any associated symptoms of chest pain, orthopnea, PND or edema of lower extremities. In addition she denies any abdominal pain. On arrival to the ED she was tachycardiac and tachypneic. Her laboratory data showed DKA. The patient was found to have beta-hydroxybutyrate of 14.7 and her ABG showed severe metabolic acidosis with a pH of 7.07, CO2 8, pAO2 144, bicarb 2 and saturation 95% on room air oxygen. Her anion gap was 26 and blood sugar of 316 on the repeat BMP. In the ED she was given 2 liters of crystalloids, 2 amps of sodium bicarb and 4 units of IV insulin. 03/02 Patient remains on insulin drip 3u/hr, AG is 15 this morning from 22. 03/03 No events overnight. Remains on insulin drip. AG 14 this morning from 18, bicarb 18. Objective Vital Signs Date Time Temp Pulse Resp B/P (MAP) Pulse Ox O2 Delivery O2 Flow Rate FiO2 03/03/17 08:52 100 Nasal Cannula 2.00 03/03/17 06:00 97 03/03/17 04:00 97.5 20 121/69 (86) Intake and Output 03/03/17 03/03/17 03/04/17 08:00 16:00 00:00 Intake Total 3374.4 ml 120 ml Output Total 1600 ml Balance 1774.4 ml 120 ml Result Diagram: 03/03/17 0634 03/03/17 0634 Other Results Laboratory Tests Test 03/02/17 11:35 03/02/17 13:27 03/02/17 20:05 03/03/17 01:25 Blood Urea Nitrogen 7 MG/DL 6 MG/DL 6 MG/DL 5 MG/DL Creatinine 0.58 MG/DL 0.62 MG/DL 0.65 MG/DL 0.55 MG/DL Random Glucose 178 MG/DL 208 MG/DL 159 MG/DL 136 MG/DL Calcium Level 7.5 MG/DL 7.5 MG/DL 7.7 MG/DL 7.8 MG/DL Phosphorus Level 3.0 MG/DL 2.6 MG/DL 1.3 MG/DL 0.9 MG/DL Magnesium Level 2.3 MG/DL 2.3 MG/DL 2.4 MG/DL 2.7 MG/DL Sodium Level 152 MEQ/L 151 MEQ/L 152 MEQ/L 153 MEQ/L Potassium Level 3.4 MEQ/L 3.4 MEQ/L 3.4 MEQ/L 3.8 MEQ/L Chloride Level 120 MEQ/L 119 MEQ/L 121 MEQ/L 122 MEQ/L Carbon Dioxide Level 13.2 MEQ/L 12.2 MEQ/L 13.4 MEQ/L 16.5 MEQ/L Anion Gap 19 MEQ/L 20 MEQ/L 18 MEQ/L 15 MEQ/L Estimat Glomerular Filtration Rate 109 ML/MIN 101 ML/MIN 95 ML/MIN 116 ML/MIN B-Hydroxybutyrate 10.03 MMOL/L 10.97 MMOL/L 7.63 MMOL/L Total Protein 5.5 GM/DL Albumin 2.7 GM/DL Alkaline Phosphatase 73 U/L Aspartate Amino Transf (AST/SGOT) 10 U/L Alanine Aminotransferase (ALT/SGPT) 11 U/L Total Bilirubin 0.3 MG/DL Test 03/03/17 06:34 White Blood Count 7.0 TH/MM3 Red Blood Count 3.90 MIL/MM3 Hemoglobin 12.4 GM/DL Hematocrit 35.9 % Mean Corpuscular Volume 92.0 FL Mean Corpuscular Hemoglobin 31.8 PG Mean Corpuscular Hemoglobin Concent 34.6 % Red Cell Distribution Width 15.4 % Platelet Count 171 TH/MM3 Mean Platelet Volume 6.7 FL Neutrophils (%) (Auto) 74.5 % Lymphocytes (%) (Auto) 13.2 % Monocytes (%) (Auto) 12.0 % Eosinophils (%) (Auto) 0.0 % Basophils (%) (Auto) 0.3 % Neutrophils # (Auto) 5.2 TH/MM3 Lymphocytes # (Auto) 0.9 TH/MM3 Monocytes # (Auto) 0.8 TH/MM3 Eosinophils # (Auto) 0.0 TH/MM3 Basophils # (Auto) 0.0 TH/MM3 CBC Comment DIFF FINAL Differential Comment Blood Urea Nitrogen 5 MG/DL Creatinine 0.67 MG/DL Random Glucose 165 MG/DL Total Protein 5.2 GM/DL Albumin 2.3 GM/DL Calcium Level 7.7 MG/DL Phosphorus Level 0.9 MG/DL Magnesium Level 2.5 MG/DL Alkaline Phosphatase 67 U/L Aspartate Amino Transf (AST/SGOT) 11 U/L Alanine Aminotransferase (ALT/SGPT) 12 U/L Total Bilirubin 0.3 MG/DL Sodium Level 151 MEQ/L Potassium Level 3.5 MEQ/L Chloride Level 119 MEQ/L Carbon Dioxide Level 18.0 MEQ/L Anion Gap 14 MEQ/L Estimat Glomerular Filtration Rate 92 ML/MIN B-Hydroxybutyrate 6.35 MMOL/L Imaging Last Impressions Chest X-Ray 03/01/17756 Signed Impressions: Service Date/Time: Wednesday, March 01, 2017 08:18 - CONCLUSION: Normal examination. Alan Stover Jr., MD CT Angiography 03/01/17756 Signed Impressions: Service Date/Time: Wednesday, March 01, 2017 08:43 - CONCLUSION: 1. No acute intrathoracic process. In particular, no pulmonary embolus. 2. 1.6 cm left thyroid nodule. Alan Stover Jr., MD Objective Remarks GENERAL: Patient is 51 yo lying in bed in NAD SKIN: Warm and dry. HEAD: Normocephalic. EYES: No scleral icterus. No injection or drainage. NECK: Supple, trachea midline. No JVD or lymphadenopathy. CARDIOVASCULAR: Tachycardic without murmurs, gallops, or rubs. RESPIRATORY: Breath sounds equal bilaterally. No accessory muscle use. GASTROINTESTINAL: Abdomen soft, non-tender, nondistended. MUSCULOSKELETAL: No cyanosis, or edema. Neuro: Awake and alert. A/P Assessment and Plan 1. Respiratory insufficiency. 2. Diabetic ketoacidosis. 3. Anion gap, metabolic acidosis ( improving) 4. Hypertension. 5. Hyperlipidemia. 6. A 1.6 cm left thyroid nodule. 7. Hypophos Plan Neuro: Monitor neuro status and avoid any sedatives. Pulm: Continue oxygen to maintain sats above 92%. Bronchodilators CV: Monitor HR and BP maintain MAP>65 mmHg. Lactic acid 1.2 : Monitor renal function I's and O's and electrolyte replacement per protocol. Monitor BMP, mag phos q 6-hours, IVF D51/2NS@175ml/hr, SW+3amps bicarb@75ml/hr Endo: Continue with insulin drip per DKA protocol. Follow up on BMP once AG is closed will transition to SSI with Levemir. Monitor BMP and lytes, beta-hydroxybutyrate q. 12-hours ( beta hydroxybutyrate 6.35 today from7.63 last night GI:Keep n.p.o. on Protonix 20 mg IV q. 12 for GI prophylaxis. ID: Monitor CBC and for signs of infections( fever and WBC). Panculture if spikes a fever. CT angiogram of the chest in the ED showed no acute intrathoracic process. Heme: Monitor CBC GI prophylaxis with Pepcid and DVT prophylaxis with SCDs and heparin subcu. Yancy Isaacs MD Mar 03, 2017 09:56
[2017-03-03] MEDS: HEPARIN SODIUM - SQ 10,000 UNITS/ML VIAL SQ SCH ×2 (10:21→23:11)
[2017-03-03] MEDS ORDERED: ONDANSETRON HCL 4 MG/2 ML VIAL IV PUSH PRN (12:15)
[2017-03-03 13:52] LABS: CALCIUM 7.8 MG/DL (8.5-10.1); CREATININE 0.58 MG/DL (0.50-1.00); MAGNESIUM 2.6 MG/DL (1.5-2.5); PHOSPHORUS 1.7 MG/DL (2.5-4.9)
[2017-03-03] MEDS ORDERED: SODIUM CHLOR 0.45% 1000 ML INJ 1,000 ML IV SCH (15:00)
[2017-03-03] MEDS ORDERED: DEXTROSE 50% IN WATER 50 ML VIAL(D50) IV PUSH PRN (15:00)
[2017-03-03] MEDS ORDERED: GLUCAGON 1 MG/ML VIAL OTHER PRN (15:00)
[2017-03-03] MEDS: INSULIN NovoLIN REGULAR SUPPLEMENTAL SCALE SQ SCH ×3 (16:40→23:00)
[2017-03-03] MEDS: INSULIN DETEMIR 100 UNITS/ML VIAL SQ SCH ×2 (16:40→20:24)
[2017-03-03 20:47] LABS: BICARBONATE 17.5 MEQ/L (21.0-32.0); CALCIUM 6.6 MG/DL (8.5-10.1); CREATININE 0.48 MG/DL (0.50-1.00); PHOSPHORUS 1.8 MG/DL (2.5-4.9)
[2017-03-03 21:18] LABS: TOTAL PROTEIN 4.4 GM/DL (6.4-8.2)
[2017-03-04] VITALS (14 sets, daily range): BP systolic 108–146; BP diastolic 57–84; PULSE 81–100; RESP 7–18; TEMP 97.5–98.6; O2SAT 93–100
[2017-03-04] MEDS: POTASSIUM CHLOR 20 MEQ PREMIX 100 ML IV PRN ×3 (00:55→05:07)
[2017-03-04] MEDS: INSULIN NovoLIN REGULAR SUPPLEMENTAL SCALE SQ SCH ×6 (03:00→23:47)
[2017-03-04] MEDS: RESP: ALBUTEROL 2.5 MG/IPRATROPIUM 0.5 MG NEB (SCH) INH ×4 (03:53→21:42)
[2017-03-04] MEDS: CHLORHEXIDINE GLUCONATE 2 % 1 PACK (2 CLOTHS) TOP SCH (04:00)
[2017-03-04 06:47] LABS: AUTOMATED NEUTROPHIL # 2.9 TH/MM3 (1.8-7.7); BASOPHIL % 0.7 % (0.0-2.0); EOSINOPHIL % 0.8 % (0.0-4.0); HEMATOCRIT 34.7 % (35.0-46.0); HEMOGLOBIN 11.7 GM/DL (11.6-15.3); LYMPH % 31.3 % (9.0-44.0); LYMPHOCYTE # 1.6 TH/MM3 (1.0-4.8); MEAN CELL VOLUME 92.5 FL (80.0-100.0); MEAN CORPUSCULAR HEMOGLOBIN 31.3 PG (27.0-34.0); MEAN CORPUSCULAR HGB CONC 33.8 % (32.0-36.0); MEAN PLATELET VOLUME 8.6 FL (7.0-11.0); MONO % 10.3 % (0.0-8.0); MONOCYTE # 0.5 TH/MM3 (0-0.9); NEUT % 56.9 % (16.0-70.0); PLATELET COUNT 185 TH/MM3 (150-450); RED BLOOD COUNT 3.75 MIL/MM3 (4.00-5.30); WHITE BLOOD COUNT 5.1 TH/MM3 (4.0-11.0)
[2017-03-04 07:10] LABS: BICARBONATE 20.6 MEQ/L (21.0-32.0); CALCIUM 7.9 MG/DL (8.5-10.1); CREATININE 0.52 MG/DL (0.50-1.00); MAGNESIUM 2.5 MG/DL (1.5-2.5)
[2017-03-04] MEDS: INSULIN DETEMIR 100 UNITS/ML VIAL SQ SCH ×2 (09:00→21:52)
[2017-03-04] MEDS: FAMOTIDINE 20 MG/2 ML VIAL IV PUSH SCH ×2 (09:05→21:52)
[2017-03-04] MEDS: DOCUSATE SODIUM 50 MG/SENNA 8.6 MG TAB PO SCH ×2 (09:05→21:52)
[2017-03-04] MEDS: DEXT 5%-NACL 0.45% 1000 ML INJ 1,000 ML IV SCH ×2 (10:10→21:52)
--- NOTE | 2017-03-04 10:41 | HHI.CCPN ---
Subjective Remarks/Hospital Course Patient is a 51-year-old female with past medical history of hypertension, diabetes mellitus, hyperlipidemia who presented to [facility] ED with complaints of shortness of breath associated with feeling nauseous. She denies any associated symptoms of chest pain, orthopnea, PND or edema of lower extremities. In addition she denies any abdominal pain. On arrival to the ED she was tachycardiac and tachypneic. Her laboratory data showed DKA. The patient was found to have beta-hydroxybutyrate of 14.7 and her ABG showed severe metabolic acidosis with a pH of 7.07, CO2 8, pAO2 144, bicarb 2 and saturation 95% on room air oxygen. Her anion gap was 26 and blood sugar of 316 on the repeat BMP. In the ED she was given 2 liters of crystalloids, 2 amps of sodium bicarb and 4 units of IV insulin. 03/02 Patient remains on insulin drip 3u/hr, AG is 15 this morning from . 03/03 No events overnight. Remains on insulin drip. AG 14 this morning from , bicarb 18. 03/04: Awake and alert. Denies any chest pain shortness of breath or abdominal discomfort. Tolerating liquids. Off insulin drip since yesterday. Objective Vital Signs Date Time Temp Pulse Resp B/P (MAP) Pulse Ox O2 Delivery O2 Flow Rate FiO2 03/04/17 10:03 97 03/04/17 06:00 93 03/04/17 04:00 98.3 17 108/57 (74) 03/03/17 20:59 21 03/03/17 08:52 Nasal Cannula 2.00 Intake and Output 03/04/17 03/04/17 03/05/17 08:00 16:00 00:00 Intake Total 1145 ml Output Total 1600 ml Balance -455 ml Result Diagram: 03/04/175 03/04/17424 Imaging Last Impressions Chest X-Ray 03/01/17756 Signed Impressions: Service Date/Time: Wednesday, March 01, 2017 08:18 - CONCLUSION: Normal examination. Alan Stover Jr., MD CT Angiography 03/01/17756 Signed Impressions: Service Date/Time: Wednesday, March 01, 2017 08:43 - CONCLUSION: 1. No acute intrathoracic process. In particular, no pulmonary embolus. 2. 1.6 cm left thyroid nodule. Alan Stover Jr., MD Objective Remarks GENERAL: Patient is 51 yo lying in bed in NAD SKIN: Warm and dry. HEAD: Normocephalic. EYES: No scleral icterus. No injection or drainage. NECK: Supple, trachea midline. No JVD or lymphadenopathy. CARDIOVASCULAR: Tachycardic without murmurs, gallops, or rubs. RESPIRATORY: Breath sounds equal bilaterally. No accessory muscle use. GASTROINTESTINAL: Abdomen soft, non-tender, nondistended. MUSCULOSKELETAL: No cyanosis, or edema. Neuro: Awake and alert. A/P Assessment and Plan 1. Respiratory insufficiency. 2. Diabetic ketoacidosis. 3. Anion gap, metabolic acidosis ( improving) 4. Hypertension. 5. Hyperlipidemia. 6. A 1.6 cm left thyroid nodule. 7. Hypophos Plan Neuro: Monitor neuro status and avoid any sedatives. Pulm: Continue oxygen to maintain sats above 92%. Bronchodilators CV: Monitor HR and BP maintain MAP>65 mmHg. Lactic acid 1.2 / Renal: Monitor renal function I's and O's and electrolyte replacement per protocol. IVF D51/2NS Endo: Off insulin drip per DKA protocol. SSI with Levemir started 03/03. Monitor BMP and lytes, GI: Advance PO 1800 ADA diet. on Protonix 20 mg IV q. 12 for GI prophylaxis. ID: Monitor CBC and for signs of infections( fever and WBC). Panculture if spikes a fever. CT angiogram of the chest in the ED showed no acute intrathoracic process. Heme: Monitor CBC GI prophylaxis with Pepcid and DVT prophylaxis with SCDs and heparin subcu. Transfer to floor, transferred to hospitalist service for further medical management. Critical care signing off. Jesus Jimenez MD Mar 04, 2017 10:41
[2017-03-04] MEDS: HEPARIN SODIUM - SQ 10,000 UNITS/ML VIAL SQ SCH ×2 (11:41→23:46)
[2017-03-05] VITALS: BP 135/67; PULSE 89; RESP 17; TEMP 98.8; O2SAT 97
[2017-03-05] MEDS: CHLORHEXIDINE GLUCONATE 2 % 1 PACK (2 CLOTHS) TOP SCH (00:06)
[2017-03-05] MEDS ORDERED: ACETAMINOPHEN 500 MG CPLT PO PRN (02:00)
[2017-03-05] MEDS: INSULIN NovoLIN REGULAR SUPPLEMENTAL SCALE SQ SCH ×4 (02:19→15:00)
[2017-03-05 04:00] VITALS: BP 118/66; PULSE 88; RESP 16; TEMP 98.1; O2SAT 98
[2017-03-05] MEDS: RESP: ALBUTEROL 2.5 MG/IPRATROPIUM 0.5 MG NEB (SCH) INH (04:00)
[2017-03-05 06:20] LABS: AUTOMATED NEUTROPHIL # 2.3 TH/MM3 (1.8-7.7); BASOPHIL % 0.7 % (0.0-2.0); EOSINOPHIL # 0.1 TH/MM3 (0-0.4); EOSINOPHIL % 2.7 % (0.0-4.0); HEMOGLOBIN 11.5 GM/DL (11.6-15.3); LYMPH % 40.7 % (9.0-44.0); MEAN CELL VOLUME 91.6 FL (80.0-100.0); MEAN CORPUSCULAR HEMOGLOBIN 31.9 PG (27.0-34.0); MEAN CORPUSCULAR HGB CONC 34.8 % (32.0-36.0); MEAN PLATELET VOLUME 6.8 FL (7.0-11.0); MONO % 9.2 % (0.0-8.0); MONOCYTE # 0.5 TH/MM3 (0-0.9); NEUT % 46.7 % (16.0-70.0); PLATELET COUNT 134 TH/MM3 (150-450); RED CELL DISTRIBUTION WIDTH 14.9 % (11.6-17.2); WHITE BLOOD COUNT 4.9 TH/MM3 (4.0-11.0)
[2017-03-05 06:53] LABS: ALKALINE PHOSPHATASE 88 U/L (45-117); ALT (GPT) 11 U/L (10-53); AST (GOT) 10 U/L (15-37); BICARBONATE 24.3 MEQ/L (21.0-32.0); BLOOD UREA NITROGEN 11 MG/DL (7-18); CHLORIDE 106 MEQ/L (98-107); GLOMERULAR FILTRATION RATE 129 ML/MIN (>89); GLUCOSE,RANDOM 148 MG/DL (74-106); SODIUM (NA) 139 MEQ/L (136-145); TOTAL BILIRUBIN ADULT 0.2 MG/DL (0.2-1.0); TOTAL PROTEIN 4.6 GM/DL (6.4-8.2)
[2017-03-05 08:00] VITALS: BP 145/83; PULSE 92; RESP 18; TEMP 96; O2SAT 98
[2017-03-05] MEDS: INSULIN DETEMIR 100 UNITS/ML VIAL SQ SCH (09:00)
[2017-03-05] MEDS: DOCUSATE SODIUM 50 MG/SENNA 8.6 MG TAB PO SCH (09:20)
[2017-03-05] MEDS: FAMOTIDINE 20 MG/2 ML VIAL IV PUSH SCH (09:20)
[2017-03-05] MEDS: DEXT 5%-NACL 0.45% 1000 ML INJ 1,000 ML IV SCH (09:24)
[2017-03-05 10:17] VITALS: O2SAT 98
[2017-03-05] MEDS: HEPARIN SODIUM - SQ 10,000 UNITS/ML VIAL SQ SCH (11:03)
[2017-03-05] MEDS ORDERED: LISI10TA3 PO (11:15)
[2017-03-05] MEDS ORDERED: LOVA20TA PO (11:15)
[2017-03-05] MEDS ORDERED: GLIP10TA6 PO (11:15)
[2017-03-05] MEDS ORDERED: POTASSIUM CHLORIDE 20 MEQ CONTROLLED RELEASE TAB PO ONE (11:15)
--- NOTE | 2017-03-05 11:16 | HHI.DCPOC ---
Discharge Care Plan Diagnosis: (1) DKA, type 2 Goals to Promote Your Health * To prevent worsening of your condition and complications * To maintain your health at the optimal level Directions to Meet Your Goals Take your medications as prescribed Follow your dietary instruction Follow activity as directed Keep your appointments as scheduled Take your immunizations and boosters as scheduled If your symptoms worsen call your PCP, if no PCP go to Urgent Care Center or Emergency Room Smoking is Dangerous to Your Health. Avoid second hand smoke Call the 24-hour hour crisis hotline for domestic abuse at Mathieu Wang MD Mar 05, 2017 11:16
--- NOTE | 2017-03-05 11:20 | HHI.DS ---
Discharge Summary Admission Date Mar 01, 2017 at 09:59 Discharge Date: Mar 05, 2017 Admitting Diagnosis DKA (1) DKA, type 2 ICD Codes: E11.10 - Type 2 diabetes mellitus with ketoacidosis without coma Status: Acute CBC/BMP: 03/05/17 0515 03/05/17 0515 Significant Findings Laboratory Tests Test 03/02/17 11:35 03/02/17 13:27 03/02/17 20:05 03/03/17 01:25 Random Glucose 178 MG/DL (74-106) 208 MG/DL (74-106) 159 MG/DL (74-106) 136 MG/DL (74-106) Calcium Level 7.5 MG/DL (8.5-10.1) 7.5 MG/DL (8.5-10.1) 7.7 MG/DL (8.5-10.1) 7.8 MG/DL (8.5-10.1) Sodium Level 152 MEQ/L (136-145) 151 MEQ/L (136-145) 152 MEQ/L (136-145) 153 MEQ/L (136-145) Potassium Level 3.4 MEQ/L (3.5-5.1) 3.4 MEQ/L (3.5-5.1) 3.4 MEQ/L (3.5-5.1) Chloride Level 120 MEQ/L (98-107) 119 MEQ/L (98-107) 121 MEQ/L (98-107) 122 MEQ/L (98-107) Carbon Dioxide Level 13.2 MEQ/L (21.0-32.0) 12.2 MEQ/L (21.0-32.0) 13.4 MEQ/L (21.0-32.0) 16.5 MEQ/L (21.0-32.0) Anion Gap 19 MEQ/L (5-15) 20 MEQ/L (5-15) 18 MEQ/L (5-15) B-Hydroxybutyrate 10.03 MMOL/L (0.00-0.39) 10.97 MMOL/L (0.00-0.39) 7.63 MMOL/L (0.00-0.39) Blood Urea Nitrogen 6 MG/DL (7-18) 6 MG/DL (7-18) 5 MG/DL (7-18) Total Protein 5.5 GM/DL (6.4-8.2) Albumin 2.7 GM/DL (3.4-5.0) Aspartate Amino Transf (AST/SGOT) 10 U/L (15-37) Phosphorus Level 1.3 MG/DL (2.5-4.9) 0.9 MG/DL (2.5-4.9) Magnesium Level 2.7 MG/DL (1.5-2.5) Test 03/03/17 06:34 03/03/17 13:18 03/03/17 19:27 03/04/17 04:25 Red Blood Count 3.90 MIL/MM3 (4.00-5.30) 3.75 MIL/MM3 (4.00-5.30) Mean Platelet Volume 6.7 FL (7.0-11.0) Neutrophils (%) (Auto) 74.5 % (16.0-70.0) Monocytes (%) (Auto) 12.0 % (0.0-8.0) 10.3 % (0.0-8.0) Lymphocytes # (Auto) 0.9 TH/MM3 (1.0-4.8) Blood Urea Nitrogen 5 MG/DL (7-18) 4 MG/DL (7-18) 5 MG/DL (7-18) 6 MG/DL (7- 18) Random Glucose 165 MG/DL (74-106) 164 MG/DL (74-106) 157 MG/DL (74-106) 123 MG/DL (74-106) Total Protein 5.2 GM/DL (6.4-8.2) 4.4 GM/DL (6.4-8.2) Albumin 2.3 GM/DL (3.4-5.0) Calcium Level 7.7 MG/DL (8.5-10.1) 7.8 MG/DL (8.5-10.1) 6.6 MG/DL (8.5-10.1) 7.9 MG/DL (8.5-10.1) Phosphorus Level 0.9 MG/DL (2.5-4.9) 1.7 MG/DL (2.5-4.9) 1.8 MG/DL (2.5-4.9) 2.0 MG/DL (2.5-4.9) Aspartate Amino Transf (AST/SGOT) 11 U/L (15-37) Sodium Level 151 MEQ/L (136-145) 153 MEQ/L (136-145) Chloride Level 119 MEQ/L (98-107) 120 MEQ/L (98-107) 108 MEQ/L (98-107) 113 MEQ/L (98-107) Carbon Dioxide Level 18.0 MEQ/L (21.0-32.0) 17.5 MEQ/L (21.0-32.0) 20.6 MEQ/L (21.0-32.0) B-Hydroxybutyrate 6.35 MMOL/L (0.00-0.39) 5.93 MMOL/L (0.00-0.39) 5.93 MMOL/L (0.00-0.39) Magnesium Level 2.6 MG/DL (1.5-2.5) Creatinine 0.48 MG/DL (0.50-1.00) Potassium Level 3.1 MEQ/L (3.5-5.1) Protein Corrected Calcium 8.0 MG/DL (8.5-10.1) Hematocrit 34.7 % (35.0-46.0) Test 03/05/17 05:15 Red Blood Count 3.60 MIL/MM3 (4.00-5.30) Hemoglobin 11.5 GM/DL (11.6-15.3) Hematocrit 33.0 % (35.0-46.0) Platelet Count 134 TH/MM3 (150-450) Mean Platelet Volume 6.8 FL (7.0-11.0) Monocytes (%) (Auto) 9.2 % (0.0-8.0) Random Glucose 148 MG/DL (74-106) Total Protein 4.6 GM/DL (6.4-8.2) Albumin 2.0 GM/DL (3.4-5.0) Calcium Level 8.0 MG/DL (8.5-10.1) Aspartate Amino Transf (AST/SGOT) 10 U/L (15-37) Potassium Level 3.4 MEQ/L (3.5-5.1) Hospital Course Patient is dm 1 who says she has been on glipizide, metformin, and farxiga for quite some time w/out any problems. She has has financial problems recently and says that she was not filling her glipizide,lisinipril, and atorvastatin. In addition her eating habits was not good for a diabetic and she also neglected to even check the blood glucose. She presented her in DKA and admitted to ICU for IVF and insulin drip. Her AG closed and pt will be resumed on her glipizide/metformin/farxiga. She will get them from the pharmacy and she will f/u with her pcp within 1 week. Pt currently has no symptoms and is eating w/out difficulty. Pt Condition on Discharge: Stable Discharge Disposition: Discharge Home Discharge Instructions DIET: Follow Instructions for: Diabetic Diet Activities you can perform: Regular-No Restrictions Follow up Referrals: PCP Follow-up - [address] cyril christian Continued Medications: Cholecalciferol (D3 Super Strength) 2,000 Unit Cap 2000 UNITS PO DAILY for Nutritional Supplement, CAP 0 Refills Dapagliflozin (Farxiga) 10 Mg Tab 10 MG PO DAILY for Blood Sugar Management, TAB 0 Refills Docusate Sodium (Stool Softener) 50 Mg Capsule PO DIRECTED Glipizide (Glipizide) 10 Mg Tab 10 MG PO BIDAC for Blood Sugar Management, #60 TAB 0 Refills (This prescription has been renewed) Take 30 minutes before a meal Lisinopril (Lisinopril) 10 Mg Tab 10 MG PO DAILY for Blood Pressure Management, #30 TAB 0 Refills (This prescription has been renewed) Lovastatin (Lovastatin) 20 Mg Tab 20 MG PO DAILY for Cholesterol Management, #30 TAB 0 Refills (This prescription has been renewed) Metformin (Metformin) 500 Mg Tab 500 MG PO BID for Blood Sugar Management, #30 TAB 0 Refills With a meal Mathieu Wang MD Mar 05, 2017 11:20
[2017-03-05] MEDS ORDERED: glipiZIDE 10 MG TAB PO ONE (11:30)
[2017-03-05] MEDS ORDERED: metFORMIN HCL 500 MG TAB PO ONE (11:30)
[2017-03-05 12:00] VITALS: BP 139/71; PULSE 91; RESP 18; TEMP 97.9; O2SAT 96
[2017-03-05] MEDS ORDERED: FAMOTIDINE 20 MG TAB PO SCH (21:00)
== END 2017-03-05 16:07 | disposition home or self-care (01) | DRG 639 ==
LOC: NEPE 07:40 → NEDA 09:59 → HIME 13:47 → N06B 03-04 12:26
PROVIDERS: ADMIT Internal Medicine Critical Care Medicine; ATTEND Internal Medicine Critical Care Medicine
DX: E11.10 Type 2 diabetes mellitus with ketoacidosis without coma (principal); E83.39 Other disorders of phosphorus metabolism; I10 Essential (primary) hypertension; E87.5 Hyperkalemia; E78.5 Hyperlipidemia, unspecified; E04.1 Nontoxic single thyroid nodule; R06.89 Other abnormalities of breathing; E86.0 Dehydration; Z59.9 Problem related to housing and economic circumstances, unspecified; T38.3X6A Underdosing of insulin and oral hypoglycemic [antidiabetic] drugs, initial encounter; Z91.120 Patient's intentional underdosing of medication regimen due to financial hardship; Z91.11 Patient's noncompliance with dietary regimen
CPT/HCPCS: 36600; 71010; 71275; 80048; 80053; 80076; 80307; 81001; 82010; 82550; 82805; 82948; 83605; 83690; 83735; 83880; 83930; 84100; 84155; 84484; 85025; 87641; 93005; 94640; 94664; 96361; 96374; J1644; J1815; J1817; J2060; J3480; J7030; J7042; J7613; Q9967

== ENCOUNTER 2017-03-06 00:45 | Emergency (ER) | payer OTHER ==
[~2017-03-06] VITALS: Ht 157.5 cm; Wt 68.7 kg
[~2017-03-06 00:45] MED LIST changes: +D200CAP PO; +DAPA1TAB3 PO; -DAPA5TAB PO; -DICL75 PO; +DOCU50CA5 PO; +LISI10TA3 PO; +LOVA20TA PO; +METF500T PO; -ZANTTAB9 PO
[2017-03-06 00:48] VITALS: BP 174/80; PULSE 116; RESP 16; TEMP 98.8; O2SAT 99
[2017-03-06 01:04] VITALS: BP 162/72; PULSE 107; RESP 18; O2SAT 100
[2017-03-06] MEDS ORDERED: SODIUM CHLOR 0.9% 1000 ML INJ 1,000 ML IV ONE (01:30)
--- NOTE | 2017-03-06 01:54 | PD ---
HPI Chief Complaint: Abdominal Pain Time Seen by Provider: 01:03 Travel History International Travel<30 days: No Contact w/Intl Traveler<30days: No Traveled to known affect area: No History of Present Illness HPI 51 year-old woman, presents ED complaining of leg and abdominal swelling. She was just admitted to the hospital and treated for DKA. She also going to a lot of social stressors with recent of one parent, and hospitalization of another. She's been taking Farxiga, as well as metformin and glipizide however she has not had the glipizide since she was discharged. She complains of swelling mostly in her thighs, and her lower abdomen. Urinating normally. Denies any other associated symptoms. Swelling in her legs is been worse since she left the hospital. History Past Medical History Narrative Medical Hypertension Diabetes Hyperlipidemia Tetanus Vaccination: Unknown Influenza Vaccination: No Menopausal: Yes : 3 Para: 3 Social History Alcohol Use: No Tobacco Use: No Allergies-Medications (Allergen,Severity, Reaction): Coded Allergies: codeine (Unverified Allergy, Mild, VOMITING, 03/06/17) Reported Meds & Prescriptions Reported Meds & Active Scripts Active Lisinopril 10 Mg Tab 10 Mg PO DAILY Lovastatin 20 Mg Tab 20 Mg PO DAILY Glipizide 10 Mg Tab 10 Mg PO BIDAC Take 30 minutes before a meal Reported Stool Softener (Docusate Sodium) 50 Mg Capsule PO DIRECTED D3 Super Strength (Cholecalciferol) 2,000 Unit Cap 2,000 Units PO DAILY Farxiga (Dapagliflozin) 10 Mg Tab 10 Mg PO DAILY Metformin (Metformin HCl) 500 Mg Tab 500 Mg PO BID With a meal Review of Systems Except as stated in HPI: all other systems reviewed are Neg Physical Exam Narrative GENERAL: 51 year-old woman, no acute distress. SKIN: Focused skin assessment warm/dry. HEAD: Atraumatic. Normocephalic. EYES: Pupils equal and round. No scleral icterus. No injection or drainage. ENT: No nasal bleeding or discharge. Mucous membranes pink and moist. NECK: Trachea midline. No JVD. CARDIOVASCULAR: Heart rate rapid but regular rhythm. No murmur appreciated. RESPIRATORY: No accessory muscle use. Clear to auscultation. Breath sounds equal bilaterally. GASTROINTESTINAL: Abdomen soft, non-tender, nondistended. Hepatic and splenic margins not palpable. MUSCULOSKELETAL: No obvious deformities. Patient states her thighs feel swollen. I don't appreciate any edema. Is no significant calf tenderness.. NEUROLOGICAL: Awake and alert. No obvious cranial nerve deficits. Motor grossly within normal limits. Normal speech. PSYCHIATRIC: Appropriate mood and affect; insight and judgment normal. Data Data Last Documented VS Vital Signs Date Time Temp Pulse Resp B/P (MAP) Pulse Ox O2 Delivery O2 Flow Rate FiO2 03/06/17 01:04 107 18 162/72 (102) 100 Room Air 03/06/17 00:48 98.8 Orders Orders Us Leg Venous Doppler Bilat (03/06/17 ) Complete Blood Count With Diff (03/06/17 01:27) Comprehensive Metabolic Panel (03/06/17 01:27) Iv Access Insert/Monitor (03/06/17 01:27) Sodium Chlor 0.9% 1000 Ml Inj (Ns 1000 M (03/06/17 01:30) Famotidine (Pepcid) (03/06/17 02:15) Insulin Aspart Inj (Novolog Inj) (03/06/17 02:45) Labs Laboratory Tests Test 03/06/17 01:40 White Blood Count 4.6 TH/MM3 Red Blood Count 4.34 MIL/MM3 Hemoglobin 13.5 GM/DL Hematocrit 40.2 % Mean Corpuscular Volume 92.6 FL Mean Corpuscular Hemoglobin 31.2 PG Mean Corpuscular Hemoglobin Concent 33.7 % Red Cell Distribution Width 15.6 % Platelet Count 160 TH/MM3 Mean Platelet Volume 6.8 FL Neutrophils (%) (Auto) 63.2 % Lymphocytes (%) (Auto) 23.6 % Monocytes (%) (Auto) 11.2 % Eosinophils (%) (Auto) 1.3 % Basophils (%) (Auto) 0.7 % Neutrophils # (Auto) 2.9 TH/MM3 Lymphocytes # (Auto) 1.1 TH/MM3 Monocytes # (Auto) 0.5 TH/MM3 Eosinophils # (Auto) 0.1 TH/MM3 Basophils # (Auto) 0.0 TH/MM3 CBC Comment DIFF FINAL Differential Comment Blood Urea Nitrogen 14 MG/DL Creatinine 0.65 MG/DL Random Glucose 325 MG/DL Total Protein 5.8 GM/DL Albumin 2.6 GM/DL Calcium Level 8.7 MG/DL Alkaline Phosphatase 89 U/L Aspartate Amino Transf (AST/SGOT) 16 U/L Alanine Aminotransferase (ALT/SGPT) 14 U/L Total Bilirubin 0.3 MG/DL Sodium Level 135 MEQ/L Potassium Level 4.6 MEQ/L Chloride Level 100 MEQ/L Carbon Dioxide Level 22.4 MEQ/L Anion Gap 13 MEQ/L Estimat Glomerular Filtration Rate 95 ML/MIN [facility] Medical Decision Making Medical Screen Exam Complete: Yes Emergency Medical Condition: Yes Interpretation(s) LABS: CBC unremarkable. BMP unremarkable. Glucose a bit elevated, proteins low. Ultrasound negative for DVT Differential Diagnosis Dehydration, DVT, tachycardia, DKA, other Narrative Course Medical decision making 51 year-old woman with concern for trace edema. Just hospitalized for several days, concern for DVT. We'll check ultrasound. Heart rates elevated. Patient states her heart rate is been elevated pro-life typically over 100. Review of records shows that she was in the 80s and 90s in the hospital including about 12 hours ago. Some concern about her going back on the Farxiga as it can precipitate DKA. We'll recheck labs. Give some IV fluids. Reassess. Diagnosis Primary Impression: Leg swelling Additional Instructions: Drink Plenty of fluids stay well-hydrated. Take her diabetes medicines as prescribed. Follow-up with her primary doctor. Med/Other Pt SpecificInfo: No Change to Meds Disposition: 01 DISCHARGE HOME Condition: Stable Zurdo Moraes MD Mar 06, 2017 01:54
[2017-03-06 01:57] LABS: AUTOMATED NEUTROPHIL # 2.9 TH/MM3 (1.8-7.7); BASOPHIL % 0.7 % (0.0-2.0); EOSINOPHIL # 0.1 TH/MM3 (0-0.4); EOSINOPHIL % 1.3 % (0.0-4.0); HEMATOCRIT 40.2 % (35.0-46.0); HEMOGLOBIN 13.5 GM/DL (11.6-15.3); LYMPH % 23.6 % (9.0-44.0); LYMPHOCYTE # 1.1 TH/MM3 (1.0-4.8); MEAN CELL VOLUME 92.6 FL (80.0-100.0); MEAN CORPUSCULAR HEMOGLOBIN 31.2 PG (27.0-34.0); MEAN CORPUSCULAR HGB CONC 33.7 % (32.0-36.0); MEAN PLATELET VOLUME 6.8 FL (7.0-11.0); MONO % 11.2 % (0.0-8.0); MONOCYTE # 0.5 TH/MM3 (0-0.9); NEUT % 63.2 % (16.0-70.0); PLATELET COUNT 160 TH/MM3 (150-450); RED BLOOD COUNT 4.34 MIL/MM3 (4.00-5.30); RED CELL DISTRIBUTION WIDTH 15.6 % (11.6-17.2); WHITE BLOOD COUNT 4.6 TH/MM3 (4.0-11.0)
[2017-03-06] MEDS ORDERED: FAMOTIDINE 20 MG TAB PO ONE (02:15)
[2017-03-06 02:19] LABS: ALBUMIN 2.6 GM/DL (3.4-5.0); ALT (GPT) 14 U/L (10-53); AST (GOT) 16 U/L (15-37); BICARBONATE 22.4 MEQ/L (21.0-32.0); BLOOD UREA NITROGEN 14 MG/DL (7-18); CALCIUM 8.7 MG/DL (8.5-10.1); CHLORIDE 100 MEQ/L (98-107); CREATININE 0.65 MG/DL (0.50-1.00); GLOMERULAR FILTRATION RATE 95 ML/MIN (>89); GLUCOSE,RANDOM 325 MG/DL (74-106); SODIUM (NA) 135 MEQ/L (136-145)
[2017-03-06 02:22] LABS: ALKALINE PHOSPHATASE 89 U/L (45-117); TOTAL BILIRUBIN ADULT 0.3 MG/DL (0.2-1.0); TOTAL PROTEIN 5.8 GM/DL (6.4-8.2)
[2017-03-06] MEDS ORDERED: INSULIN ASPART 1,000 UNITS/10 ML VIAL SQ ONE (02:45)
--- NOTE | 2017-03-06 03:24 | RADRPT ---
EXAM DATE/TIME: 03/06/2017 02:42 [facility] COMPARISON: No previous studies available for comparison. INDICATIONS : Bilateral leg swelling. MEDICAL HISTORY : Hypercholesterolemia. Hypertension. . Right eye blindness. Hyperlipidemia. Pneumonia. Endome triosis. Diabetes. Thyroid disease. Anemia. SURGICAL HISTORY : Cyst removal bilateral wrists. Skin graft. Laparotomy. ENCOUNTER: Initial ACUITY: 1 day PAIN SCORE: 0/10 LOCATION: Bilateral legs. TECHNIQUE: Venous ultrasound of the left and right leg was performed from the inguinal ligament to the proximal calf. Real-time, color Doppler and spectral tracing, compression and augmentation techniques were us ed. FINDINGS: RIGHT LEG: There is normal compressibility of the deep venous system from the inguinal region to the proximal ca lf. No echogenic clot is seen in the lumen of the common femoral, femoral, popliteal, and posterior tibial veins. There is a normal response of the venous system to proximal and distal augmentation an d respiration. LEFT LEG: There is normal compressibility of the deep venous system from the inguinal region to the proximal ca lf. No echogenic clot is seen in the lumen of the common femoral, femoral, popliteal, and posterior tibial veins. There is a normal response of the venous system to proximal and distal augmentation an d respiration. CONCLUSION: Normal examination. Jayro Treviño MD on March 06, 2017 at 3:22 Board Certified Radiologist. This report was verified electronically.
== END 2017-03-06 03:51 | disposition home or self-care (01) ==
LOC: NEPE 00:45
DX: R60.0 Localized edema (principal); R14.0 Abdominal distension (gaseous); I10 Essential (primary) hypertension; E78.5 Hyperlipidemia, unspecified; E11.9 Type 2 diabetes mellitus without complications
CPT/HCPCS: 80053; 85025; 93970; 96372; 99284; J1815; J7030

== ENCOUNTER 2017-03-07 11:53 | Inpatient (IN) | payer OTHER ==
[~2017-03-07] VITALS: Ht 157.5 cm; Wt 61.1 kg
[2017-03-07 11:55] VITALS: BP 158/73; PULSE 111; RESP 16; TEMP 98.2; O2SAT 100
[2017-03-07] MEDS ORDERED: ONDANSETRON HCL 4 MG/2 ML VIAL IV PUSH ONE (12:30)
[2017-03-07] MEDS ORDERED: SODIUM CHLORIDE 0.9% FLUSH 10 ML FLUSH IVF PRN (12:30)
[2017-03-07] MEDS ORDERED: SODIUM CHLOR 0.9% 1000 ML INJ 1,000 ML IV ONE (12:30)
--- NOTE | 2017-03-07 12:45 | PD ---
HPI Chief Complaint: vomiting Time Seen by Provider: 12:26 Travel History International Travel<30 days: No Contact w/Intl Traveler<30days: No Traveled to known affect area: No History of Present Illness HPI 51-year-old female states she has been having nonbloody emesis and upper abdominal pain that goes into her chest since yesterday. She states that she talked with her primary care doctor who advised that she come to the emergency room. She states she is under a lot of stress she just lost her mother and her father is in the surgical ICU. She states she's not having any other concurrent complaints at this time. She feels worse when she moves around. She denies any other modifying factors. Duration is past day or so. She states that the swelling from when she was here before has gotten better. She states she doesn't know what her sugar is because she hasn't checked it recently but was recently here with DKA. Quality is nonbloody. Severity is about 4 episodes. PFSH Past Medical History Anemia: Yes Blood Disorders: No Cancer: No Cardiovascular Problems: Yes (HTN ) High Cholesterol: Yes Diabetes: Yes Endocrine: Yes Genitourinary: No Hypertension: Yes Immune Disorder: No Musculoskeletal: No Neurologic: No Psychiatric: No Reproductive: Yes Respiratory: Yes (PNEMONIA) Integumentary: Yes (CYST LABIA) Thyroid Disease: Yes Triglycerides - High: Yes ?: Not Menopausal: Yes : 3 Para: 3 Past Surgical History Abdominal Surgery: No AICD: No Arteriovenous Shunt: No Cardiac Surgery: No Section: Yes Ear Surgery: No Endocrine Surgery: No Eye Surgery: Yes Gynecologic Surgery: Yes (SURGERY FOR ENDOMETREOSIS) Insulin Pump: No Joint Replacement: No Oral Surgery: No Pacemaker: No Thoracic Surgery: No Other Surgery: Yes (CYST REMOVED B WRISTS AND SKIN GRAFT RT CALF) Social History Alcohol Use: No Tobacco Use: No Substance Use: No Allergies-Medications (Allergen,Severity, Reaction): Coded Allergies: codeine (Unverified Allergy, Mild, VOMITING, 03/06/17) Reported Meds & Prescriptions Reported Meds & Active Scripts Active Lisinopril 10 Mg Tab 10 Mg PO DAILY Lovastatin 20 Mg Tab 20 Mg PO DAILY Glipizide 10 Mg Tab 10 Mg PO BIDAC Take 30 minutes before a meal Reported Stool Softener (Docusate Sodium) 50 Mg Capsule PO DIRECTED D3 Super Strength (Cholecalciferol) 2,000 Unit Cap 2,000 Units PO DAILY Farxiga (Dapagliflozin) 10 Mg Tab 10 Mg PO DAILY Metformin (Metformin HCl) 500 Mg Tab 500 Mg PO BID With a meal Review of Systems Except as stated in HPI: all other systems reviewed are Neg Physical Exam Exam Limitations: Poor Historian Narrative GENERAL: Well-nourished, well-developed patient. SKIN: Warm and dry. HEAD: Normocephalic and atraumatic. EYES: No injection or drainage. ENT: No nasal drainage noted. NECK: Supple, trachea midline. CARDIOVASCULAR: Regular rate and rhythm RESPIRATORY: Breath sounds equal bilaterally. No accessory muscle use. GASTROINTESTINAL: Abdomen soft, ttp in epigastric area, nondistended. no rebound NEUROLOGICAL: Awake and alert. moves all extremities and sensory grossly within normal limits. Normal speech. Data Data Last Documented VS Vital Signs Date Time Temp Pulse Resp B/P (MAP) Pulse Ox O2 Delivery O2 Flow Rate FiO2 03/07/17 11:55 98.2 111 16 158/73 (101) 100 Orders Orders Electrocardiogram (03/07/17 12:30) Complete Blood Count With Diff (03/07/17 12:30) Comprehensive Metabolic Panel (03/07/17 12:30) Magnesium (Mg) (03/07/17 12:30) Phosphorus (Po4) (03/07/17 12:30) Beta Hydroxybutyrate (Acetone) (03/07/17 12:30) Urinalysis - C+S If Indicated (03/07/17 12:30) Chest, Single Ap (03/07/17 12:30) Ecg Monitoring (03/07/17 12:30) Iv Access Insert/Monitor (03/07/17 12:30) Oximetry (03/07/17 12:30) NPO (03/07/17 12:30) Sodium Chloride 0.9% Flush (Ns Flush) (03/07/17 12:30) Troponin I (03/07/17 12:30) Lipase (03/07/17 12:30) Sodium Chlor 0.9% 1000 Ml Inj (Ns 1000 M (03/07/17 12:30) Us Abdomen Gallbladder (03/07/17 ) Ondansetron Inj (Zofran Inj) (03/07/17 12:30) Blood Glucose (03/07/17 12:30) Pantoprazole Inj (Protonix Inj) (03/07/17 14:00) Diet Npo (03/07/17 Dinner) Dext 5%-Nacl 0.9% 1000 Ml Inj (D5w-Ns 10 (03/07/17 14:08) Insulin Human Regular Inj (Novolin R Inj (03/07/17 14:15) Insulin Regular (Iv Infusion) (Novolin R (03/07/17 14:15) Potassium Chlor 20 Meq Premix (Kcl 20 Me (03/07/17 14:15) Potassium Chlor 20 Meq Premix (Kcl 20 Me (03/07/17 14:15) Potassium Chlor 20 Meq Premix (Kcl 20 Me (03/07/17 14:15) Potassium Chlor 20 Meq Premix (Kcl 20 Me (03/07/17 14:15) Sodium Bicarbonate 8.4% Inj (Sodium Bica (03/07/17 14:15) Sodium Bicarbonate 8.4% Inj (Sodium Bica (03/07/17 14:15) Sodium Phosphate Inj (Sodium Phosphate I (03/07/17 14:15) Admit Order (Ed Use Only) (03/07/17 14:29) Labs Laboratory Tests Test 03/07/17 13:00 White Blood Count 6.0 TH/MM3 Red Blood Count 4.16 MIL/MM3 Hemoglobin 12.9 GM/DL Hematocrit 39.2 % Mean Corpuscular Volume 94.0 FL Mean Corpuscular Hemoglobin 30.9 PG Mean Corpuscular Hemoglobin Concent 32.8 % Red Cell Distribution Width 15.0 % Platelet Count 214 TH/MM3 Mean Platelet Volume 6.9 FL Neutrophils (%) (Auto) 65.5 % Lymphocytes (%) (Auto) 19.8 % Monocytes (%) (Auto) 12.5 % Eosinophils (%) (Auto) 1.6 % Basophils (%) (Auto) 0.6 % Neutrophils # (Auto) 3.9 TH/MM3 Lymphocytes # (Auto) 1.2 TH/MM3 Monocytes # (Auto) 0.8 TH/MM3 Eosinophils # (Auto) 0.1 TH/MM3 Basophils # (Auto) 0.0 TH/MM3 CBC Comment AUTO DIFF Differential Total Cells Counted 100 Neutrophils % (Manual) 59 % Band Neutrophils % 10 % Lymphocytes % 13 % Monocytes % 13 % Eosinophils % 2 % Neutrophils # (Manual) 4.3 TH/MM3 Metamyelocytes 3 % Differential Comment FINAL DIFF MANUAL Platelet Estimate NORMAL Platelet Morphology Comment NORMAL Red Cell Morphology Comment NORMAL Urine Color LIGHT-YELLOW Urine Turbidity CLEAR Urine pH 5.0 Urine Specific [place] 1.014 Urine Protein NEG mg/dL Urine Glucose (UA) 1000 mg/dL Urine Ketones 150 mg/dL Urine Occult Blood NEG Urine Nitrite NEG Urine Bilirubin NEG Urine Urobilinogen LESS THAN 2.0 MG/DL Urine Leukocyte Esterase NEG Urine RBC LESS THAN 1 /hpf Urine WBC 1 /hpf Urine Squamous Epithelial Cells 1 /hpf Urine Mucus FEW /lpf Microscopic Urinalysis Comment CULT NOT INDICATED Blood Urea Nitrogen 7 MG/DL Creatinine 0.46 MG/DL Random Glucose 180 MG/DL Total Protein 6.4 GM/DL Albumin 2.9 GM/DL Calcium Level 9.0 MG/DL Phosphorus Level 3.8 MG/DL Magnesium Level 2.0 MG/DL Alkaline Phosphatase 72 U/L Aspartate Amino Transf (AST/SGOT) 25 U/L Alanine Aminotransferase (ALT/SGPT) 18 U/L Total Bilirubin 0.4 MG/DL Sodium Level 134 MEQ/L Potassium Level 4.6 MEQ/L Chloride Level 100 MEQ/L Carbon Dioxide Level 13.3 MEQ/L Anion Gap 21 MEQ/L Estimat Glomerular Filtration Rate 142 ML/MIN Troponin I LESS THAN 0.02 NG/ML Lipase 819 U/L B-Hydroxybutyrate 9.29 MMOL/L MDM Medical Decision Making Medical Screen Exam Complete: Yes Emergency Medical Condition: Yes Medical Record Reviewed: Yes (recent past history confirmed) Interpretation(s) CBC & BMP Diagram 03/07/17 13:00 Total Protein 6.4 #, Albumin 2.9 L, Calcium Level 9.0, Phosphorus Level 3.8, Magnesium Level 2.0, Alkaline Phosphatase 72, Aspartate Amino Transf (AST/SGOT) 25, Alanine Aminotransferase (ALT/SGPT) 18, Total Bilirubin 0.4 Last 24 hours Impressions Chest X-Ray 03/07/17 1230 Signed Impressions: Service Date/Time: February 12:54 - CONCLUSION: No acute disease. No significant change has occurred. Paulino Lockett MD Gall Bladder Ultrasound 03/07/17 0000 Signed Impressions: Service Date/Time: February 13:15 - CONCLUSION: 1. Possible small gallbladder wall polyp near the fundus. 2. Otherwise negative. Nicholas Bowen MD Differential Diagnosis DKA, gastritis, cholecystitis, atypical cardiac, hyperglycemia Narrative Course Will check blood work, chest x-ray, EKG, gallbladder ultrasound and reevaluate ED workup shows DKA but patient's glucose was only in the 180s. She will be placed on dextrose-containing IV fluids and insulin drip will be started. Patient updated and agrees to admission. Critical Care Narrative Aggregate critical care time was 31 minutes. Time to perform other separately billable procedures was not included in the critical care time. My time did not include minutes spent treating any other patients simultaneously or on activities that did not directly contribute to the patient's treatment. The services I provided to this patient were to treat and/or prevent clinically significant deterioration that could result in: DKA, metabolic disorder, I provided critical care services requiring my management, as noted below: Chart data review, documentation time, medication orders and management, vital sign assessments/reviewing monitor data, ordering and reviewing lab tests, ordering and interpreting/reviewing x-rays and diagnostic studies, care of the patient and discussion of the patient with the admitting physicians. Physician Communication Physician Communication dr khoury agrees to admit Diagnosis Primary Impression: DKA (diabetic ketoacidoses) Qualified Codes: E13.10 - Other specified diabetes mellitus with ketoacidosis without coma Additional Impression: Abdominal pain Qualified Codes: R10.13 - Epigastric pain Admitting Information Admitting Physician Requests: Admit Serena Allan MD Mar 07, 2017 12:45
--- NOTE | 2017-03-07 13:22 | RADRPT ---
EXAM DATE/TIME: 03/07/2017 12:54 [facility] COMPARISON: CHEST SINGLE AP, March 01, 2017, 8:18. INDICATIONS : Pain behind sternum for several days MEDICAL HISTORY : Diabetes mellitus type II. Hypertension SURGICAL HISTORY : None. ENCOUNTER: Initial ACUITY: 4 - 6 days PAIN SCORE: 8/10 LOCATION: Bilateral chest FINDINGS: A single view of the chest demonstrates the lungs to be symmetrically aerated without evidence of mas s, infiltrate or effusion. The cardiomediastinal contours are unremarkable. Osseous structures are intact. CONCLUSION: No acute disease. No significant change has occurred. Paulino Lockett MD on March 07, 2017 at 13:20 Board Certified Radiologist. This report was verified electronically.
[2017-03-07 13:24] LABS: BILIRUBIN, URINE NEG (NEG); BLOOD, URINE NEG (NEG); GLUCOSE,URINE 1000 mg/dL (NEG); KETONE, URINE 150 mg/dL (NEG); MUCUS URINE FEW /lpf (OCC); NITRITE,URINE NEG (NEG); SQUAMOUS EPITHELIAL CELL URINE 1 /hpf (0-5); URINE COLOR LIGHT-YELLOW (YELLW/STRAW); URINE LEUKOCYTE ESTERASE NEG (NEG)
[2017-03-07 13:26] LABS: AUTOMATED NEUTROPHIL # 3.9 TH/MM3 (1.8-7.7); BASOPHIL % 0.6 % (0.0-2.0); EOSINOPHIL # 0.1 TH/MM3 (0-0.4); EOSINOPHIL % 1.6 % (0.0-4.0); HEMATOCRIT 39.2 % (35.0-46.0); HEMOGLOBIN 12.9 GM/DL (11.6-15.3); LYMPH % 19.8 % (9.0-44.0); LYMPHOCYTE # 1.2 TH/MM3 (1.0-4.8); MEAN CORPUSCULAR HEMOGLOBIN 30.9 PG (27.0-34.0); MEAN CORPUSCULAR HGB CONC 32.8 % (32.0-36.0); MEAN PLATELET VOLUME 6.9 FL (7.0-11.0); MONO % 12.5 % (0.0-8.0); MONOCYTE # 0.8 TH/MM3 (0-0.9); NEUT % 65.5 % (16.0-70.0); PLATELET COUNT 214 TH/MM3 (150-450); RED BLOOD COUNT 4.16 MIL/MM3 (4.00-5.30)
[2017-03-07 13:46] LABS: ALBUMIN 2.9 GM/DL (3.4-5.0); ALT (GPT) 18 U/L (10-53); AST (GOT) 25 U/L (15-37); BICARBONATE 13.3 MEQ/L (21.0-32.0); BLOOD UREA NITROGEN 7 MG/DL (7-18); CHLORIDE 100 MEQ/L (98-107); CREATININE 0.46 MG/DL (0.50-1.00); GLOMERULAR FILTRATION RATE 142 ML/MIN (>89); GLUCOSE,RANDOM 180 MG/DL (74-106); LIPASE 819 U/L (73-393); PHOSPHORUS 3.8 MG/DL (2.5-4.9); SODIUM (NA) 134 MEQ/L (136-145)
[2017-03-07 13:59] LABS: ALKALINE PHOSPHATASE 72 U/L (45-117); TOTAL BILIRUBIN ADULT 0.4 MG/DL (0.2-1.0); TOTAL PROTEIN 6.4 GM/DL (6.4-8.2); TROPONIN I LESS THAN 0.02 NG/ML (0.02-0.05)
[2017-03-07] MEDS ORDERED: PANTOPRAZOLE SODIUM 40 MG VIAL IV PUSH ONE (14:00)
--- NOTE | 2017-03-07 14:03 | RADRPT ---
EXAM DATE/TIME: 03/07/2017 13:15 [facility] COMPARISON: No previous studies available for comparison. INDICATIONS : Nausea and vomiting. MEDICAL HISTORY : Blind right eye. Hypertension. Hypercholesterol. Endometriosis. Diabetic. SURGICAL HISTORY : section. Cyst removal bilateral wrists. Skin graft. Laparotomy. Endometriosis surgery. ENCOUNTER: Initial ACUITY: 1 day PAIN SCORE: 0/10 LOCATION: Right upper quadrant MEASUREMENTS: LIVER: 16.0 cm length COMMON DUCT: 4 mm RIGHT KIDNEY: 11.9 x 5.4 x 5.9 cm FINDINGS: LIVER: Normal echotexture without focal lesion or ductal dilatation. COMMON DUCT: No intraluminal mass or stone visualized. GALLBLADDER: Contains no stones, demonstrates no wall thickening or pericholecystic fluid. Gallbladder is almost completely decompressed. There is an echogenic mural nodule near the fundus which may represent a sma ll polyp. PANCREAS: The visualized portions are within normal limits. RIGHT KIDNEY: No evidence of hydronephrosis, stone, or mass. CONCLUSION: 1. Possible small gallbladder wall polyp near the fundus. 2. Otherwise negative. Nicholas Bowen MD on March 07, 2017 at 14:00 Board Certified Radiologist. This report was verified electronically.
[2017-03-07 14:11] LABS: BANDS 10 % (0-6); LYMPHOCYTES 13 % (9-44); METAMYELOCYTES 3 % (0-1); MONOCYTES 13 % (0-8); NEUTROPHIL # MANUAL DIFF 4.3 TH/MM3 (1.8-7.7); POLYS (SEG NEUTROPHILS) 59 % (16-70)
[2017-03-07] MEDS ORDERED: INSULIN REGULAR (IV INFUSION) 100 UNITS in SODIUM CHLORIDE 0.9% INJ 99 ML IV PRN ×2 (14:15→17:45)
[2017-03-07] MEDS ORDERED: INSULIN HUMAN REGULAR 1,000 UNITS/10 ML VIAL IV PUSH ONE (14:15)
[2017-03-07] MEDS ORDERED: SODIUM PHOSPHATE INJ 15 MMOL in SODIUM CHLORIDE 0.9% INJ 100 ML IV PRN (14:15)
[2017-03-07] MEDS ORDERED: SODIUM BICARBONATE 8.4% SOLN 50 MEQ/50 ML VIAL IV PUSH PRN ×2 (14:15)
[2017-03-07] MEDS ORDERED: POTASSIUM CHLOR 20 MEQ PREMIX 100 ML IV PRN ×4 (14:15)
[2017-03-07] MEDS: DEXT 5%-NACL 0.9% 1000 ML INJ 1,000 ML IV SCH ×3 (15:23→21:17)
--- NOTE | 2017-03-07 15:31 | HHI.HP ---
HPI Service [facility] Hospitalists Primary Care Physician Mauri Caldwell M.D. Admission Diagnosis dka Chief Complaint: abdomen pain n/v Travel History International Travel<30 Days: No Contact w/Intl Traveler <30 Da: No Traveled to Known Affected Are: No History of Present Illness Pt is dm 2 who was recently admitted and just discharged earlier this week for DKA. Pt presented with sob at that time and found to have DKA. Admitted to ICU and placed on insulin gtt. She was moved to med floor and refused insulin and wanted to try her oral meds. She admitted to recent noncompliance with her meds due to money issues. She stated that she would resume her glipizide/metformin/farxiga. After admisson she came to ED for swelling felt due to ivf prior admission. Also she was told to stop her farxiga as it might cause gerd and dka. Then pt developed mid epigastric pains 2 days ago and has been vomiting since last night. In ED found to have dka again and ED asking for ICU admit and insulin gtt. IVF given. mild lipase elevation. denies etoh use. Review of Systems Other epigastric pain n/v Past Family Social History Past Medical History dm 2. recent noncompliance recent admission for dka htn hyperlipidemia thyroid nodule 1.6CM LEFT. ..seen on cta chest 02/24 Reported Medications Lisinopril 10 Mg Tab 10 Mg PO DAILY Lovastatin 20 Mg Tab 20 Mg PO DAILY Glipizide 10 Mg Tab 10 Mg PO BIDAC Take 30 minutes before a meal Stool Softener (Docusate Sodium) 50 Mg Capsule PO DIRECTED D3 Super Strength (Cholecalciferol) 2,000 Unit Cap 2,000 Units PO DAILY Farxiga (Dapagliflozin) 10 Mg Tab 10 Mg PO DAILY recently stopped Metformin (Metformin HCl) 500 Mg Tab 500 Mg PO BID With a meal Allergies: Coded Allergies: codeine (Unverified Allergy, Mild, VOMITING, 03/06/17) Family History nc Social History denies etoh;tob Physical Exam Vital Signs ambulating oriented not vomiting now heart reg lung cta abd mild epigastric tenderness. bs. no rebound ext no edema Vital Signs Date Time Temp Pulse Resp B/P (MAP) Pulse Ox O2 Delivery O2 Flow Rate FiO2 03/07/17 11:55 98.2 111 16 158/73 (101) 100 Laboratory Laboratory Tests Test 03/07/17 13:00 White Blood Count 6.0 Red Blood Count 4.16 Hemoglobin 12.9 Hematocrit 39.2 Mean Corpuscular Volume 94.0 Mean Corpuscular Hemoglobin 30.9 Mean Corpuscular Hemoglobin Concent 32.8 Red Cell Distribution Width 15.0 Platelet Count 214 Mean Platelet Volume 6.9 Neutrophils (%) (Auto) 65.5 Lymphocytes (%) (Auto) 19.8 Monocytes (%) (Auto) 12.5 Eosinophils (%) (Auto) 1.6 Basophils (%) (Auto) 0.6 Neutrophils # (Auto) 3.9 Lymphocytes # (Auto) 1.2 Monocytes # (Auto) 0.8 Eosinophils # (Auto) 0.1 Basophils # (Auto) 0.0 CBC Comment AUTO DIFF Differential Total Cells Counted 100 Neutrophils % (Manual) 59 Band Neutrophils % 10 Lymphocytes % 13 Monocytes % 13 Eosinophils % 2 Neutrophils # (Manual) 4.3 Metamyelocytes 3 Differential Comment FINAL DIFF MANUAL Platelet Estimate NORMAL Platelet Morphology Comment NORMAL Red Cell Morphology Comment NORMAL Urine Color LIGHT-YELLOW Urine Turbidity CLEAR Urine pH 5.0 Urine Specific [place] 1.014 Urine Protein NEG Urine Glucose (UA) 1000 Urine Ketones 150 Urine Occult Blood NEG Urine Nitrite NEG Urine Bilirubin NEG Urine Urobilinogen LESS THAN 2.0 Urine Leukocyte Esterase NEG Urine RBC LESS THAN 1 Urine WBC 1 Urine Squamous Epithelial Cells 1 Urine Mucus FEW Microscopic Urinalysis Comment CULT NOT INDICATED Blood Urea Nitrogen 7 Creatinine 0.46 Random Glucose 180 Total Protein 6.4 Albumin 2.9 Calcium Level 9.0 Phosphorus Level 3.8 Magnesium Level 2.0 Alkaline Phosphatase 72 Aspartate Amino Transf (AST/SGOT) 25 Alanine Aminotransferase (ALT/SGPT) 18 Total Bilirubin 0.4 Sodium Level 134 Potassium Level 4.6 Chloride Level 100 Carbon Dioxide Level 13.3 Anion Gap 21 Estimat Glomerular Filtration Rate 142 Troponin I LESS THAN 0.02 Lipase 819 B-Hydroxybutyrate 9.29 Result Diagram: 03/07/17 1300 03/07/17 1300 Caprini VTE Risk Assessment Caprini Risk Assessment Model Point Value = 1 Point Value = 2 Point Value = 3 Point Value = 5 Age 41-60 Minor surgery BMI > 25 kg/m2 Swollen legs Varicose veins or History of unexplained or recurrent spontaneous Oral contraceptives or hormone replacement Sepsis (< 1 month) Serious lung disease, including pneumonia (< 1 month) Abnormal pulmonary function Acute myocardial infarction Congestive heart failure (< 1 month) History of inflammatory bowel disease Medical patient at bed rest Age 61-74 Arthroscopic surgery Major open surgery (> 45 min) Laparoscopic surgery (> 45 min) Malignancy Confined to bed (> 72 hours) Immobilizing plaster cast Central venous access Age >= 75 History of VTE Family history of VTE Factor V Leiden Prothrombin [id number] Lupus anticoagulant Anticardiolipin antibodies Elevated serum homocysteine Heparin-induced thrombocytopenia Other congenital or acquired thrombophilia Stroke (< 1 month) Elective arthroplasty Hip, pelvis, or leg fracture Acute spinal cord injury (< 1 month) Prophylaxis Regimen Total Risk Factor Score Risk Level Prophylaxis Regimen 0-1 Low Early ambulation 2 Moderate Order ONE of the following: *Sequential Compression Device (SCD) *Heparin 5000 units SQ BID 3-4 Higher Order ONE of the following medications: *Heparin 5000 units SQ TID *Enoxaparin/Lovenox 40 mg SQ daily (WT < 150 kg, CrCl > 30 mL/min) *Enoxaparin/Lovenox 30 mg SQ daily (WT < 150 kg, CrCl > 10-29 mL/min) *Enoxaparin/Lovenox 30 mg SQ BID (WT < 150 kg, CrCl > 30 mL/min) AND/OR *Sequential Compression Device (SCD) 5 or more Highest Order ONE of the following medications: *Heparin 5000 units SQ TID (Preferred with Epidurals) *Enoxaparin/Lovenox 40 mg SQ daily (WT < 150 kg, CrCl > 30 mL/min) *Enoxaparin/Lovenox 30 mg SQ daily (WT < 150 kg, CrCl > 10-29 mL/min) *Enoxaparin/Lovenox 30 mg SQ BID (WT < 150 kg, CrCl > 30 mL/min) AND *Sequential Compression Device (SCD) Assessment and Plan Problem List: (1) DKA (diabetic ketoacidoses) ICD Codes: E13.10 - Other specified diabetes mellitus with ketoacidosis without coma Status: Acute Plan: 1. DKA 2. N/V DUE TO DKA 3. EPIGASTRIC PAIN..?PANCREATITIS 4. HTN PLAN ICU ED TO START D5 GTT AND INSULIN UNTIL AG CLOSES..THEN I TOLD PT I WOULD CONVERT HER TO LEVEMIR AND NOVOLOG CHECK HGBA1C, TSH, FLP CHECK CT A/P TO EVAL PANCREAS. CLEAR LIQUIDS PPI AND PRN ZOFRAN SCD'S (2) Epigastric abdominal pain ICD Codes: R10.13 - Epigastric pain Status: Acute (3) HTN (hypertension) ICD Codes: I10 - Essential (primary) hypertension Status: Chronic Physician Certification 2 Midnight Certification Type: Admission for Inpatient Services Order for Inpatient Services 3The services are ordered in accordance with Medicare regulations or non- Medicare payer requirements, as applicable. In the case of services not specified as inpatient-only, they are appropriately provided as inpatient services in accordance with the 2-midnight benchmark. Estimated LOS (days): 3 3 days is the estimated time the patient will need to remain in the hospital, assuming treatment plan goals are met and no additional complications. Post-Hospital Plan: Home Problem Qualifiers (1) DKA (diabetic ketoacidoses): Qualified Codes: E13.10 - Other specified diabetes mellitus with ketoacidosis without coma Mathieu Wang MD Mar 07, 2017 15:31
[2017-03-07] MEDS ORDERED: ONDANSETRON HCL 4 MG/2 ML VIAL IV PUSH PRN (15:45)
[2017-03-07] MEDS ORDERED: cloNIDine HCL 0.1 MG TAB PO PRN (16:00)
[2017-03-07] MEDS ORDERED: ENALAPRILAT 1.25 MG/ML VIAL IV PUSH PRN (16:00)
[2017-03-07 16:06] VITALS: BP 152/78; PULSE 98; RESP 16; O2SAT 100
[2017-03-07 17:00] LABS: BICARBONATE 13.6 MEQ/L (21.0-32.0); CALCIUM 8.7 MG/DL (8.5-10.1); CREATININE 0.41 MG/DL (0.50-1.00)
[2017-03-07 18:00] VITALS: PULSE 93; RESP 19; TEMP 98.3; O2SAT 99
[2017-03-07 19:00] VITALS: BP 127/58; PULSE 96; RESP 20; O2SAT 100
[2017-03-07 20:00] VITALS: PULSE 96
[2017-03-07] MEDS ORDERED: PANTOPRAZOLE SODIUM 40 MG VIAL IV PUSH SCH (21:00)
[2017-03-07 22:00] VITALS: PULSE 90
[2017-03-07 23:21] LABS: CALCIUM 7.6 MG/DL (8.5-10.1); CREATININE 0.35 MG/DL (0.50-1.00); MAGNESIUM 1.6 MG/DL (1.5-2.5); PHOSPHORUS 2.2 MG/DL (2.5-4.9)
[2017-03-08] VITALS (11 sets, daily range): BP systolic 102–137; BP diastolic 57–73; PULSE 79–95; RESP 16–20; TEMP 98–98.7; O2SAT 97–100
[2017-03-08] MEDS ORDERED: INSULIN DETEMIR 100 UNITS/ML VIAL SQ SCH ×2 (01:10→09:00)
[2017-03-08] MEDS ORDERED: DEXT 5%-NACL 0.9% 1000 ML INJ 1,000 ML IV SCH (01:15)
[2017-03-08] MEDS ORDERED: DEXTROSE 50% IN WATER 50 ML VIAL(D50) IV PUSH PRN (01:30)
[2017-03-08] MEDS ORDERED: GLUCAGON 1 MG/ML VIAL OTHER PRN (01:30)
[2017-03-08 05:29] LABS: BLOOD UREA NITROGEN 3 MG/DL (7-18); CALCIUM 8.1 MG/DL (8.5-10.1); CHLORIDE 109 MEQ/L (98-107); CHOLESTEROL 151 MG/DL (120-200); CREATININE 0.26 MG/DL (0.50-1.00); GLOMERULAR FILTRATION RATE 274 ML/MIN (>89); GLUCOSE,RANDOM 165 MG/DL (74-106); SODIUM (NA) 140 MEQ/L (136-145); TRIGLYCERIDES 90 MG/DL (42-150)
[2017-03-08 05:31] LABS: AUTOMATED NEUTROPHIL # 2.5 TH/MM3 (1.8-7.7); BASOPHIL # 0.1 TH/MM3 (0-0.2); BASOPHIL % 1.1 % (0.0-2.0); EOSINOPHIL # 0.1 TH/MM3 (0-0.4); EOSINOPHIL % 2.7 % (0.0-4.0); HEMATOCRIT 32.6 % (35.0-46.0); HEMOGLOBIN 11.1 GM/DL (11.6-15.3); LYMPH % 33.2 % (9.0-44.0); LYMPHOCYTE # 1.8 TH/MM3 (1.0-4.8); MEAN CELL VOLUME 93.2 FL (80.0-100.0); MEAN CORPUSCULAR HEMOGLOBIN 31.9 PG (27.0-34.0); MEAN CORPUSCULAR HGB CONC 34.2 % (32.0-36.0); MEAN PLATELET VOLUME 6.5 FL (7.0-11.0); MONO % 15.8 % (0.0-8.0); MONOCYTE # 0.9 TH/MM3 (0-0.9); NEUT % 47.2 % (16.0-70.0); PLATELET COUNT 190 TH/MM3 (150-450); RED CELL DISTRIBUTION WIDTH 15.1 % (11.6-17.2); WHITE BLOOD COUNT 5.4 TH/MM3 (4.0-11.0)
[2017-03-08 05:38] LABS: CHOLESTEROL/ HDL RATIO 3.83 RATIO; HDL CHOLESTEROL 39.4 MG/DL (40.0-60.0); LDL CHOLESTEROL 94 MG/DL (0-99)
[2017-03-08] MEDS: LOW DOSE INSULIN NOVOLOG SUPPLEMENTAL SCALE SQ SCH ×2 (08:00→11:49)
--- NOTE | 2017-03-08 08:31 | HHI.PR ---
Subjective Remarks abdomen pain better no vomiting. Objective Vitals heart reg lung cta abd s/nt ext no edema Vital Signs Date Time Temp Pulse Resp B/P (MAP) Pulse Ox O2 Delivery O2 Flow Rate FiO2 03/08/17 06:00 80 03/08/17 04:00 79 03/08/17 04:00 98.5 79 16 102/57 (72) 98 03/08/17 02:00 82 03/08/17 00:00 98.7 92 18 111/58 (75) 98 03/08/17 00:00 92 03/07/17 22:00 90 03/07/17 20:00 96 03/07/17 19:00 96 20 127/58 (81) 100 03/07/17 19:00 96 03/07/17 18:00 93 03/07/17 18:00 98.3 93 19 99 03/07/17 16:06 98 16 152/78 (102) 100 Room Air 03/07/17 11:55 98.2 111 16 158/73 (101) 100 Result Diagram: 03/08/17 04003/08/17 0409 A/P Problem List: (1) DKA (diabetic ketoacidoses) ICD Codes: E13.10 - Other specified diabetes mellitus with ketoacidosis without coma Status: Acute Plan: 1. DKA 2. N/V DUE TO DKA 3. EPIGASTRIC PAIN..?PANCREATITIS 4. HTN PLAN transfer to med/surg d/c insulin gtt and electrolyte protocol advance diet begin levemir and titrate. prn ssi f/u ct a/p. pending f/u hgba1c ppi scd (2) Epigastric abdominal pain ICD Codes: R10.13 - Epigastric pain Status: Acute (3) HTN (hypertension) ICD Codes: I10 - Essential (primary) hypertension Status: Chronic Problem Qualifiers (1) DKA (diabetic ketoacidoses): Qualified Codes: E13.10 - Other specified diabetes mellitus with ketoacidosis without coma Mathieu Wang MD Mar 08, 2017 08:31
[2017-03-08] MEDS: PANTOPRAZOLE SOD 40 MG DELAYED RELEASE TAB PO SCH (09:14)
[2017-03-08] MEDS ORDERED: DIATRIZOATE MEGLUM/DIATRIZOATE SOD 9 ML CUP PO ONE (09:15)
--- NOTE | 2017-03-08 14:55 | EKG ---
Date Performed: 03/07/2017 Time Performed: 12:40:04 PTAGE: 51 years EKG: SINUS TACHYCARDIA WITH SHORT IL INTERVAL NONSPECIFIC ST & T-WAVE ABNORMALITY Since previous tracing, no significant change noted ABNORMAL RHYTHM ECG PREVIOUS TRACING : 03/01/2017 08.13 DOCTOR: Rex Jose Interpretating Date/Time 03/08/2017 14:54:18
[2017-03-08 15:58] LABS: HEMOGLOBIN A1C 11.4 % (4.3-6.0)
[2017-03-08] MEDS: INSULIN ASPART SUPPLEMENTAL SCALE SQ SCH ×2 (16:44→20:48)
--- NOTE | 2017-03-08 19:46 | RADRPT ---
EXAM DATE/TIME: 03/08/2017 19:29 [facility] COMPARISON: US ABDOMEN - GALLBLADDER, March 07, 2017, 13:15. INDICATIONS : Epigastric pain after eating. Nausea and vomiting. ORAL CONTRAST: Prescribed oral contrast ingested. RADIATION DOSE: 12.61 CTDIvol (mGy) MEDICAL HISTORY : Hypertension. Diabetes mellitus type 2. SURGICAL HISTORY : section. ENCOUNTER: Initial ACUITY: 1 week PAIN SCALE: 5/10 LOCATION: epigastric TECHNIQUE: Volumetric scanning of the abdomen and pelvis was performed. Using automated exposure control and ad justment of the mA and/or kV according to patient size, radiation dose was kept as low as reasonably achievable to obtain optimal diagnostic quality images. DICOM format image data is available electro nically for review and comparison. FINDINGS: LOWER LUNGS: There are are small bilateral pleural effusions. LIVER: Homogeneous density without lesion. There is no dilation of the biliary tree. No calcified gallston es. The gallbladder is unremarkable in appearance. SPLEEN: Normal size without lesion. PANCREAS: Within normal limits. KIDNEYS: Normal in size and shape. There is no mass, stone, or hydronephrosis. ADRENAL GLANDS: Within normal limits. VASCULAR: There is no aortic aneurysm. BOWEL/MESENTERY: There is a small retrocardiac hiatal hernia. The stomach, small bowel, and colon demonstrate no acute abnormality. There is no free intraperitoneal air. There is a small amount of free fluid in the pel vis. ABDOMINAL WALL: Within normal limits. RETROPERITONEUM: There is no lymphadenopathy. BLADDER: No wall thickening or mass. REPRODUCTIVE: Within normal limits. INGUINAL: There is no lymphadenopathy or hernia. MUSCULOSKELETAL: Within normal limits for patient age. CONCLUSION: 1. Small bilateral pleural effusions with no infiltrates in the lung bases. 2. Nonobstructive bowel gas pattern with no inflammatory change. 3. Small amount of fluid in the pelvis which is a nonspecific finding in a female patient of this age could be physiologic. Scott Linares MD on March 08, 2017 at 19:41 Board Certified Radiologist. This report was verified electronically.
[2017-03-08] MEDS: INSULIN DETEMIR 100 UNITS/ML VIAL SQ SCH (20:47)
[2017-03-09 05:08] VITALS: BP 138/77; PULSE 89; RESP 16; TEMP 97.4; O2SAT 98
[2017-03-09 07:22] LABS: BICARBONATE 25.4 MEQ/L (21.0-32.0); CALCIUM 8.3 MG/DL (8.5-10.1); CREATININE 0.21 MG/DL (0.50-1.00)
[2017-03-09] MEDS ORDERED: POTASSIUM CHLORIDE 20 MEQ CONTROLLED RELEASE TAB PO ONE (07:30)
[2017-03-09 08:00] VITALS: BP 139/76; PULSE 85; RESP 20; TEMP 97.8; O2SAT 100
[2017-03-09] MEDS: INSULIN ASPART SUPPLEMENTAL SCALE SQ SCH ×4 (08:00→20:43)
[2017-03-09] MEDS: PANTOPRAZOLE SOD 40 MG DELAYED RELEASE TAB PO SCH (09:20)
[2017-03-09] MEDS: INSULIN DETEMIR 100 UNITS/ML VIAL SQ SCH ×2 (09:21→20:43)
--- NOTE | 2017-03-09 09:56 | HHI.PR ---
Subjective Remarks less pain with eating..was immediate and started after the vomiting at home Objective Vitals heart reg lung cta abd s/nt ext no edema Vital Signs Date Time Temp Pulse Resp B/P (MAP) Pulse Ox O2 Delivery O2 Flow Rate FiO2 03/09/17 08:00 97.8 85 20 139/76 (97) 100 03/09/17 05:08 97.4 89 16 138/77 (97) 98 03/09/17 00:00 Room Air 03/08/17 23:52 98.4 94 16 126/61 (82) 97 03/08/17 22:07 98.0 85 16 137/73 (94) 99 03/08/17 16:00 98.3 89 20 120/65 (83) 100 03/08/17 12:28 98.1 83 20 131/62 (85) 100 03/08/17 12:00 93 03/08/17 12:00 98.6 93 16 124/64 (84) 100 03/08/17 10:00 85 03/08/17 10:00 95 Result Diagram: 03/08/17 0409 03/09/17 0545 A/P Problem List: (1) DKA (diabetic ketoacidoses) ICD Codes: E13.10 - Other specified diabetes mellitus with ketoacidosis without coma Status: Acute Plan: 1. DKA. poorly controlled dm. hgba1c 11.4 2. N/V DUE TO DKA 3. EPIGASTRIC PAIN..?PANCREATITIS felt to have mild esophagitis from n/v 4. HTN PLAN cont levemir. tight control and might need to lower dose prior to d/c. monitor for 24 hrs and d/c home. ppi close pcp f/u (2) Epigastric abdominal pain ICD Codes: R10.13 - Epigastric pain Status: Acute (3) HTN (hypertension) ICD Codes: I10 - Essential (primary) hypertension Status: Chronic Problem Qualifiers (1) DKA (diabetic ketoacidoses): Qualified Codes: E13.10 - Other specified diabetes mellitus with ketoacidosis without coma Mathieu Wang MD Mar 09, 2017 09:56
[2017-03-09] MEDS ORDERED: LISINOPRIL 10 MG TAB PO ONE (10:00)
[2017-03-09 12:00] VITALS: BP 121/65; PULSE 88; RESP 20; TEMP 97.4; O2SAT 99
[2017-03-09] MEDS: ACYCLOVIR 5% OINT 5 APPLIC/5 GM TUBE TOPICAL SCH ×3 (15:42→20:44)
[2017-03-09 16:00] VITALS: BP 111/57; PULSE 90; RESP 20; TEMP 97.6; O2SAT 100
[2017-03-09 19:27] VITALS: BP 131/71; PULSE 94; RESP 20; TEMP 98.3; O2SAT 98
[2017-03-10] VITALS: BP 121/56; PULSE 90; RESP 20; TEMP 98.3; O2SAT 97
[2017-03-10 04:00] VITALS: BP 120/64; PULSE 83; RESP 18; TEMP 97.2; O2SAT 94
[2017-03-10] MEDS: ACYCLOVIR 5% OINT 5 APPLIC/5 GM TUBE TOPICAL SCH (06:00)
[2017-03-10 08:00] VITALS: BP 126/67; PULSE 82; RESP 18; TEMP 97.9; O2SAT 97
[2017-03-10] MEDS: INSULIN ASPART SUPPLEMENTAL SCALE SQ SCH (08:00)
[2017-03-10] MEDS: PANTOPRAZOLE SOD 40 MG DELAYED RELEASE TAB PO SCH (08:23)
[2017-03-10] MEDS: INSULIN DETEMIR 100 UNITS/ML VIAL SQ SCH (08:24)
[2017-03-10 08:25] LABS: BICARBONATE 25.8 MEQ/L (21.0-32.0); CALCIUM 8.4 MG/DL (8.5-10.1); CREATININE 0.36 MG/DL (0.50-1.00)
[2017-03-10] MEDS ORDERED: LISINOPRIL 10 MG TAB PO SCH (09:00)
[2017-03-10] MEDS ORDERED: PANT40TA3 PO (09:13)
[2017-03-10] MEDS ORDERED: NOVOLOGP2 SQ ×5 (09:13→09:38)
[2017-03-10] MEDS ORDERED: LEVEMIR SQ ×2 (09:16)
--- NOTE | 2017-03-10 09:16 | HHI.DCPOC ---
Discharge Care Plan Diagnosis: (1) DKA (diabetic ketoacidoses) (2) HTN (hypertension) Goals to Promote Your Health * To prevent worsening of your condition and complications * To maintain your health at the optimal level Directions to Meet Your Goals Take your medications as prescribed Follow your dietary instruction Follow activity as directed Keep your appointments as scheduled Take your immunizations and boosters as scheduled If your symptoms worsen call your PCP, if no PCP go to Urgent Care Center or Emergency Room Smoking is Dangerous to Your Health. Avoid second hand smoke Call the 24-hour hour crisis hotline for domestic abuse at Mathieu Wang MD Mar 10, 2017 09:16
--- NOTE | 2017-03-10 09:18 | HHI.FF ---
Face to Face Verification Diagnosis: (1) DKA (diabetic ketoacidoses) (2) HTN (hypertension) Home Health Nursing Order: Medical education Signs/symptoms of disease process Diabetic education Medication education-adverse effect Nursing assessment with vital signs Instructions: assure safe transition home with new medications to include insulin. assure understanding of checking bg before meals tid and using the ssi novolog coverage. She is to keep a log of her bg levels and take to pcp on f/u visit. I have seen patient Lucia Gilbert on 03/10/17. My clinical findings support the need for the requested home health care services because: Need for psychosocial assistance Injectable med education/admin I certify that my clinical findings support that this patient is homebound because: Need for psychosocial assistance Mathieu Wang MD Mar 10, 2017 09:18
[2017-03-10] MEDS ORDERED: [UNRECOGNIZED DRUG - CODE] (09:23)
--- NOTE | 2017-03-10 09:33 | HHI.DS ---
Discharge Summary Admission Date Mar 07, 2017 at 14:31 Discharge Date: Mar 10, 2017 Admitting Diagnosis dka (1) DKA (diabetic ketoacidoses) Diagnosis: Principal ICD Codes: E13.10 - Other specified diabetes mellitus with ketoacidosis without coma Status: Acute (2) Epigastric abdominal pain Diagnosis: Principal ICD Codes: R10.13 - Epigastric pain Status: Acute (3) HTN (hypertension) Diagnosis: Secondary ICD Codes: I10 - Essential (primary) hypertension Status: Chronic Brief History Pt is dm 2 who was recently admitted and just discharged earlier this week for DKA. Pt presented with sob at that time and found to have DKA. Admitted to ICU and placed on insulin gtt. She was moved to med floor and refused insulin and wanted to try her oral meds. She admitted to recent noncompliance with her meds due to money issues. She stated that she would resume her glipizide/metformin/farxiga. After admisson she came to ED for swelling felt due to ivf prior admission. Also she was told to stop her farxiga as it might cause gerd and dka. Then pt developed mid epigastric pains 2 days ago and has been vomiting since last night. In ED found to have dka again and ED asking for ICU admit and insulin gtt. IVF given. mild lipase elevation. denies etoh use. CBC/BMP: 03/08/17 0409 03/10/17 0705 Significant Findings Laboratory Tests Test 03/07/17 13:00 03/07/17 16:05 03/07/17 18:20 03/07/17 22:27 Mean Platelet Volume 6.9 FL (7.0-11.0) Monocytes (%) (Auto) 12.5 % (0.0-8.0) Band Neutrophils % 10 % (0-6) Monocytes % 13 % (0-8) Metamyelocytes 3 % (0-1) Urine Glucose (UA) 1000 mg/dL (NEG) Urine Ketones 150 mg/dL (NEG) Urine Mucus FEW /lpf (OCC) Creatinine 0.46 MG/DL (0.50-1.00) 0.41 MG/DL (0.50-1.00) 0.35 MG/DL (0.50-1.00) Random Glucose 180 MG/DL (74-106) 179 MG/DL (74-106) 122 MG/DL (74-106) Albumin 2.9 GM/DL (3.4-5.0) Sodium Level 134 MEQ/L (136-145) Carbon Dioxide Level 13.3 MEQ/L (21.0-32.0) 13.6 MEQ/L (21.0-32.0) 19.0 MEQ/L (21.0-32.0) Anion Gap 21 MEQ/L (5-15) 18 MEQ/L (5-15) Troponin I LESS THAN 0.02 NG/ML Lipase 819 U/L (73-393) B-Hydroxybutyrate 9.29 MMOL/L (0.00-0.39) Blood Urea Nitrogen 6 MG/DL (7-18) 4 MG/DL (7-18) Calcium Level 7.6 MG/DL (8.5-10.1) Phosphorus Level 2.2 MG/DL (2.5-4.9) Chloride Level 112 MEQ/L (98-107) Test 03/08/17 04:09 03/09/17 05:45 03/10/17 07:05 Red Blood Count 3.50 MIL/MM3 (4.00-5.30) Hemoglobin 11.1 GM/DL (11.6-15.3) Hematocrit 32.6 % (35.0-46.0) Mean Platelet Volume 6.5 FL (7.0-11.0) Monocytes (%) (Auto) 15.8 % (0.0-8.0) Blood Urea Nitrogen 3 MG/DL (7-18) 3 MG/DL (7-18) 6 MG/DL (7-18) Creatinine 0.26 MG/DL (0.50-1.00) 0.21 MG/DL (0.50-1.00) 0.36 MG/DL (0.50-1.00) Random Glucose 165 MG/DL (74-106) 120 MG/DL (74-106) 191 MG/DL (74-106) Calcium Level 8.1 MG/DL (8.5-10.1) 8.3 MG/DL (8.5-10.1) 8.4 MG/DL (8.5-10.1) Chloride Level 109 MEQ/L (98-107) 108 MEQ/L (98-107) Carbon Dioxide Level 17.0 MEQ/L (21.0-32.0) Hemoglobin A1c 11.4 % (4.3-6.0) HDL Cholesterol 39.4 MG/DL (40.0-60.0) Potassium Level 3.3 MEQ/L (3.5-5.1) Hospital Course (1) DKA (diabetic ketoacidoses) 1. DKA. poorly controlled dm. hgba1c 11.4 2. N/V DUE TO DKA 3. EPIGASTRIC PAIN..?PANCREATITIS felt to have mild esophagitis from n/v 4. HTN PLAN continue levemir. 15 u AM and 10 units use ssi with novolog. ask c to eval. pt says she has used insulin in past d/c home and have pcp f/u closely. (2) Epigastric abdominal pain ICD Codes: R10.13 - Epigastric pain Status: Acute (3) HTN (hypertension) ICD Codes: I10 - Essential (primary) hypertension Status: Chronic Mar 09, 2017 09:56 Pt Condition on Discharge: Stable Discharge Disposition: Disch w/ Home Health Serv Discharge Instructions DIET: Follow Instructions for: Diabetic Diet Activities you can perform: Regular-No Restrictions Follow up Referrals: PCP Follow-up - [address] cyril christian New Medications: Blood Sugar Diagnostic (Glucose Test Strip) 1 Each Strip 1 STRIP .XX TIDAC for diabetes for 30 Days, STRIP 3 Refills Insulin Aspart Inj (Novolog Inj) 1,000 Unit/10 Ml Vial 2-12 UNITS SQ TIDAC for Blood Sugar Management, #10 ML 3 Refills Max dose at bedtime ( ) units; sugars less than 70,(0) units; sugars 150-199,(2) units; sugars 200-249,(4) units; sugars 250-299,(7) units; sugars 300-349,(10) units; sugars greater than 349,(12)units Insulin Detemir Inj (Levemir Inj) 1,000 unit/ 10 ML Vial 15 UNITS SQ DAILY for Blood Sugar Management for 30 Days, VIAL 3 Refills Do not mix with any other Insulin. Insulin Detemir Inj (Levemir Inj) 1,000 unit/ 10 ML Vial 10 UNITS SQ HS for diabetes for 30 Days, INJECTION 3 Refills Do not mix with any other Insulin. Pantoprazole (Pantoprazole) 40 Mg Tab 40 MG PO DAILY for esophagitis, #30 TAB 3 Refills Continued Medications: Cholecalciferol (D3 Super Strength) 2,000 Unit Cap 2000 UNITS PO DAILY for Nutritional Supplement, CAP 0 Refills Docusate Sodium (Stool Softener) 50 Mg Capsule PO DIRECTED Lisinopril (Lisinopril) 10 Mg Tab 10 MG PO DAILY for Blood Pressure Management, #30 TAB 0 Refills Lovastatin (Lovastatin) 20 Mg Tab 20 MG PO DAILY for Cholesterol Management, #30 TAB 0 Refills Discontinued Medications: Dapagliflozin (Farxiga) 10 Mg Tab 10 MG PO DAILY for Blood Sugar Management, TAB 0 Refills Glipizide (Glipizide) 10 Mg Tab 10 MG PO BIDAC for Blood Sugar Management, #60 TAB 0 Refills Take 30 minutes before a meal Metformin (Metformin) 500 Mg Tab 500 MG PO BID for Blood Sugar Management, #30 TAB 0 Refills With a meal Mathieu Wang MD Mar 10, 2017 09:33
== END 2017-03-10 11:11 | disposition home or self-care (01) | DRG 639 ==
LOC: NEPE 11:53 → NEDA 14:31 → HIME 16:45 → N04B 03-08 12:29
PROVIDERS: ADMIT Hospitalist; ATTEND Hospitalist
DX: E11.10 Type 2 diabetes mellitus with ketoacidosis without coma (principal); I10 Essential (primary) hypertension; K20.9 Esophagitis, unspecified; R10.13 Epigastric pain; Z91.14 Patient's other noncompliance with medication regimen; E78.5 Hyperlipidemia, unspecified; E04.1 Nontoxic single thyroid nodule
CPT/HCPCS: 71010; 74176; 76705; 80048; 80053; 80061; 81001; 82010; 82948; 83036; 83690; 83735; 84100; 84443; 84484; 85007; 85025; 85027; 87641; 93005; 96361; 96374; C9113; J1815; J1817; J2405; J3480; J7030; J7042; Q9963

== ENCOUNTER 2017-03-22 19:09 | Emergency (ER) | payer OTHER ==
[~2017-03-22] VITALS: Ht 157.5 cm; Wt 68.2 kg
[~2017-03-22 19:09] MED LIST changes: -DAPA1TAB3 PO; -GLIP10TA6 PO; +LEVEMIR SQ; -METF500T PO; +NOVOLOGP2 SQ; +PANT40TA3 PO; +[UNRECOGNIZED DRUG - CODE]
[2017-03-22 19:17] VITALS: BP 160/71; PULSE 95; RESP 16; TEMP 98.9; O2SAT 99
[2017-03-22] MEDS ORDERED: SODIUM CHLORIDE 0.9% FLUSH 10 ML FLUSH IV FLUSH PRN (22:45)
[2017-03-22 23:02] VITALS: O2SAT 98
--- NOTE | 2017-03-22 23:18 | RADRPT ---
EXAM DATE/TIME: 03/22/2017 22:49 [facility] COMPARISON: CHEST SINGLE AP, March 07, 2017, 12:54. INDICATIONS : Lower extremity swelling and cough. MEDICAL HISTORY : Diabetes. SURGICAL HISTORY : None. ENCOUNTER: Initial ACUITY: 1 day PAIN SCORE: 0/10 LOCATION: Bilateral chest FINDINGS: A single view of the chest demonstrates the lungs to be symmetrically aerated without evidence of mas s, infiltrate or effusion. The cardiomediastinal contours are unremarkable. Osseous structures are intact. CONCLUSION: No acute disease. No significant change has occurred. Patrice Sharp MD on March 22, 2017 at 23:17 Board Certified Radiologist. This report was verified electronically.
[2017-03-22 23:30] LABS: AUTOMATED NEUTROPHIL # 1.8 TH/MM3 (1.8-7.7); BASOPHIL # 0.1 TH/MM3 (0-0.2); BASOPHIL % 1.2 % (0.0-2.0); EOSINOPHIL # 0.1 TH/MM3 (0-0.4); EOSINOPHIL % 2.9 % (0.0-4.0); HEMATOCRIT 33.9 % (35.0-46.0); HEMOGLOBIN 11.7 GM/DL (11.6-15.3); LYMPH % 52.4 % (9.0-44.0); LYMPHOCYTE # 2.7 TH/MM3 (1.0-4.8); MEAN CORPUSCULAR HEMOGLOBIN 32.3 PG (27.0-34.0); MEAN CORPUSCULAR HGB CONC 34.4 % (32.0-36.0); MEAN PLATELET VOLUME 8.4 FL (7.0-11.0); MONO % 8.6 % (0.0-8.0); MONOCYTE # 0.4 TH/MM3 (0-0.9); NEUT % 34.9 % (16.0-70.0); PLATELET COUNT 187 TH/MM3 (150-450); RED CELL DISTRIBUTION WIDTH 14.8 % (11.6-17.2); WHITE BLOOD COUNT 5.1 TH/MM3 (4.0-11.0)
[2017-03-22 23:40] LABS: ALKALINE PHOSPHATASE 203 U/L (45-117); TOTAL BILIRUBIN ADULT 0.4 MG/DL (0.2-1.0); TOTAL PROTEIN 6.8 GM/DL (6.4-8.2)
[2017-03-22 23:42] LABS: ALT (GPT) 83 U/L (10-53); AST (GOT) 44 U/L (15-37); BICARBONATE 29.5 MEQ/L (21.0-32.0); BLOOD UREA NITROGEN 7 MG/DL (7-18); CALCIUM 8.4 MG/DL (8.5-10.1); CHLORIDE 104 MEQ/L (98-107); CREATININE 0.55 MG/DL (0.50-1.00); GLOMERULAR FILTRATION RATE 115 ML/MIN (>89); GLUCOSE,RANDOM 251 MG/DL (74-106); SODIUM (NA) 138 MEQ/L (136-145)
--- NOTE | 2017-03-23 01:25 | PD ---
HPI . Diabetic complications, leg swelling Chief Complaint: Diabetic Time Seen by Provider: 22:37 Travel History International Travel<30 days: No Contact w/Intl Traveler<30days: No Traveled to known affect area: No History of Present Illness HPI 52-year-old female status post recent admission to the hospital for diabetic ketoacidosis presents with having persistently high blood sugars, and is concerned because her feet bilaterally are swollen. Patient denies any leg pain , shortness of breath, or chest pain. Patient does note slight shortness of breath with lying down at night however the. Patient also denies any fever chills sweats, nausea vomiting abdominal pain. Patient states that the precipitant for her ketoacidosis was increased stress, and concomitant upper respiratory infection. Patient states that she is recovered from the infection , however still has significant social stressors at home dealing with elderly family members. PFSH Past Medical History Narrative Medical Past medical history reviewed Anemia: Yes Blood Disorders: No Cancer: No Cardiovascular Problems: Yes (HTN) High Cholesterol: Yes Diabetes: Yes Patient Takes Glucophage: No Diminished Hearing: No Endocrine: Yes Genitourinary: No Hypertension: Yes Immune Disorder: No Musculoskeletal: No Neurologic: No Psychiatric: No Reproductive: Yes Respiratory: Yes (PNEMONIA) Integumentary: Yes (CYST LABIA) Thyroid Disease: Yes Triglycerides - High: Yes ?: Not Menopausal: Yes : 3 Para: 3 Past Surgical History Abdominal Surgery: No AICD: No Arteriovenous Shunt: No Cardiac Surgery: No Section: Yes Ear Surgery: No Endocrine Surgery: No Eye Surgery: Yes Gynecologic Surgery: Yes (SURGERY FOR ENDOMETREOSIS) Insulin Pump: No Joint Replacement: No Oral Surgery: No Pacemaker: No Thoracic Surgery: No Other Surgery: Yes (CYST REMOVED B WRISTS AND SKIN GRAFT RT CALF) Social History Alcohol Use: No Tobacco Use: No Substance Use: No Allergies-Medications (Allergen,Severity, Reaction): Coded Allergies: codeine (Unverified Allergy, Mild, VOMITING, 03/06/17) Reported Meds & Prescriptions Reported Meds & Active Scripts Active Novolog Inj (Insulin Aspart) 1,000 Unit/10 Ml Vial 2-12 Units SQ TIDAC Max dose at bedtime ( ) units; sugars less than 70,(0) units; sugars 150-199,(2) units; sugars 200-249,(4) units; sugars 250-299,(7) units; sugars 300-349,(10) units; sugars greater than 349,(12)units Glucose Test Strip (Blood Sugar Diagnostic) 1 Each Strip 1 Strip .XX TIDAC 30 Days Levemir Inj (Insulin Detemir) 1,000 unit/ 10 ML Vial 15 Units SQ DAILY 30 Days Do not mix with any other Insulin. Levemir Inj (Insulin Detemir) 1,000 unit/ 10 ML Vial 10 Units SQ HS 30 Days Do not mix with any other Insulin. Pantoprazole (Pantoprazole Sodium) 40 Mg Tab 40 Mg PO DAILY Lisinopril 10 Mg Tab 10 Mg PO DAILY Lovastatin 20 Mg Tab 20 Mg PO DAILY Reported Stool Softener (Docusate Sodium) 50 Mg Capsule PO DIRECTED D3 Super Strength (Cholecalciferol) 2,000 Unit Cap 2,000 Units PO DAILY Narrative Medication Allergies and medications reviewed Review of Systems Except as stated in HPI: all other systems reviewed are Neg General / Constitutional: No: Fever Eyes: No: Visual changes HENT: No: Headaches Cardiovascular: No: Chest Pain or Discomfort Respiratory: No: Shortness of Breath Gastrointestinal: No: Abdominal Pain Genitourinary: No: Dysuria Musculoskeletal: Positive: Edema, No: Myalgias, Arthralgias, Pain Skin: No Rash Neurologic: No: Weakness Psychiatric: No: Depression Endocrine: No: Polydipsia Hematologic/Lymphatic: No: Easy Bruising Physical Exam Narrative GENERAL: Awake and alert oriented 3 no acute distress SKIN: Warm and dry. Color is normal no diaphoresis cyanosis or pallor HEAD: Atraumatic. Normocephalic. EYES: Pupils equal and round. No scleral icterus. No injection or drainage. ENT: No nasal bleeding or discharge. Mucous membranes pink and moist. NECK: Trachea midline. No JVD. Supple full range of motion CARDIOVASCULAR: Regular rate and rhythm. S1-S2 no murmurs rubs or gallops RESPIRATORY: No accessory muscle use. Clear to auscultation. Breath sounds equal bilaterally. GASTROINTESTINAL: Abdomen soft, non-tender, nondistended. Hepatic and splenic margins not palpable. MUSCULOSKELETAL: Extremities without clubbing, cyanosis, mild edema less than 1 + bilateral extremities. Nontender posterior gastroc, popliteal fossa, medial thigh along great vessel distribution.. No obvious deformities. NEUROLOGICAL: Awake and alert. No obvious cranial nerve deficits. Motor grossly within normal limits. Five out of 5 muscle strength in the arms and legs. Normal speech. PSYCHIATRIC: Appropriate mood and affect; insight and judgment normal. Data Data Last Documented VS Vital Signs Date Time Temp Pulse Resp B/P (MAP) Pulse Ox O2 Delivery O2 Flow Rate FiO2 03/22/17 23:02 98 Room Air 03/22/17 19:17 98.9 95 16 Orders Orders Complete Blood Count With Diff (03/22/17 22:43) Comprehensive Metabolic Panel (03/22/17 22:43) Urinalysis - C+S If Indicated (03/22/17 22:43) Iv Access Insert/Monitor (03/22/17 22:43) Ecg Monitoring (03/22/17 22:43) Oximetry (03/22/17 22:43) Sodium Chloride 0.9% Flush (Ns Flush) (03/22/17 22:45) B-Type Natriuretic Peptide (03/22/17 22:43) Chest, Single Ap (03/22/17 ) Labs Laboratory Tests Test 03/22/17 22:53 White Blood Count 5.1 TH/MM3 Red Blood Count 3.60 MIL/MM3 Hemoglobin 11.7 GM/DL Hematocrit 33.9 % Mean Corpuscular Volume 94.0 FL Mean Corpuscular Hemoglobin 32.3 PG Mean Corpuscular Hemoglobin Concent 34.4 % Red Cell Distribution Width 14.8 % Platelet Count 187 TH/MM3 Mean Platelet Volume 8.4 FL Neutrophils (%) (Auto) 34.9 % Lymphocytes (%) (Auto) 52.4 % Monocytes (%) (Auto) 8.6 % Eosinophils (%) (Auto) 2.9 % Basophils (%) (Auto) 1.2 % Neutrophils # (Auto) 1.8 TH/MM3 Lymphocytes # (Auto) 2.7 TH/MM3 Monocytes # (Auto) 0.4 TH/MM3 Eosinophils # (Auto) 0.1 TH/MM3 Basophils # (Auto) 0.1 TH/MM3 CBC Comment AUTO DIFF Blood Urea Nitrogen 7 MG/DL Creatinine 0.55 MG/DL Random Glucose 251 MG/DL Total Protein 6.8 GM/DL Albumin 3.0 GM/DL Calcium Level 8.4 MG/DL Alkaline Phosphatase 203 U/L Aspartate Amino Transf (AST/SGOT) 44 U/L Alanine Aminotransferase (ALT/SGPT) 83 U/L Total Bilirubin 0.4 MG/DL Sodium Level 138 MEQ/L Potassium Level 4.4 MEQ/L Chloride Level 104 MEQ/L Carbon Dioxide Level 29.5 MEQ/L Anion Gap 5 MEQ/L Estimat Glomerular Filtration Rate 115 ML/MIN B-Type Natriuretic Peptide 41 PG/ML MDM Medical Decision Making Medical Screen Exam Complete: Yes Emergency Medical Condition: Yes Medical Record Reviewed: Yes Differential Diagnosis Diabetes, uncontrolled, peripheral edema, DVT Narrative Course Patient laboratory examinations reviewed, patient has no significant abdomen is. D-dimer is negative. Patient is significant relief with these results. Discharge Diagnosis Primary Impression: Peripheral edema Patient Instructions: Edema (ED), General Instructions Additional Instructions: Elevate legs, follow-up with your doctor. Return for worsening. Recommend repeat lab work early this next week. Disposition: 01 DISCHARGE HOME Condition: Stable Peter Suazo MD Mar 23, 2017 01:25
== END 2017-03-23 01:43 | disposition home or self-care (01) ==
LOC: NEPE 19:09
DX: R60.0 Localized edema (principal); E11.9 Type 2 diabetes mellitus without complications; E78.00 Pure hypercholesterolemia, unspecified; I10 Essential (primary) hypertension; R06.02 Shortness of breath; Z79.4 Long term (current) use of insulin
CPT/HCPCS: 71045; 80053; 83880; 85025; 99284